=== PATIENT | male | born 1935 | race Caucasian/White ===

== ENCOUNTER 2020-09-13 13:55 | Inpatient (IN) ==
[2020-09-13] MEDS ORDERED: ONDANSETRON INJ 2 MG/ML 2 ML VIAL IV STA (14:15)
[2020-09-13] MEDS ORDERED: ONDANSETRON 4 MG OD TAB PO PRN (14:34)
[2020-09-13] MEDS ORDERED: METOCLOPRAMIDE HCL INJ 5 MG/ML 2 ML VIAL IV PRN (14:34)
[2020-09-13] MEDS ORDERED: LORazepam 1 MG TAB PO PRN (14:34)
[2020-09-13] MEDS ORDERED: PROMETHAZINE HCL 12.5 MG in SODIUM CHLORIDE 0.9% 50 ML IV PRN (14:34)
[2020-09-13] MEDS ORDERED: LORazepam 1 MG/2 ML VIAL IV PRN (14:34)
[2020-09-13] MEDS: HYDROmorphone INJ 0.5 MG/0.5 ML SYR IV PRN ×5 (14:38→23:36)
[2020-09-13 14:40] LABS: Basophils # (auto) 0.01 K/uL (0-0.2); Basophils % (auto) 0.1 %; Eosinophils # (auto) 0.07 K/uL (0-0.5); Eosinophils % (auto) 0.7 %; Hemoglobin 13.5 g/dL (14.0-18.0); Immature Granulocytes # (auto) 0.04 K/uL (0.00-0.02); Immature Granulocytes % (auto) 0.4 %; Lymphocytes # (auto) 1.66 K/uL (1.2-3.4); Lymphocytes % (auto) 17.1 %; Mean Corpuscular Hemoglobin 34.9 pg (25-34); Mean Corpuscular Hgb Conc 33.8 g/dL (32-36); Mean Corpuscular Volume 103.4 fL (80-100); Mean Platelet Volume 11.4 fL (7.4-10.4); Monocytes # (auto) 1.08 K/uL (0.11-0.59); Monocytes % (auto) 11.1 %; Neutrophils # (auto) 6.85 K/uL (1.4-6.5); Neutrophils % (auto) 70.6 %; Platelet Count 147 K/uL (130-400); RDW Coefficient of Variation 12.9 % (11.5-14.5); RDW Standard Deviation 48.4 fL (36.4-46.3); Red Blood Count 3.87 M/uL (4.7-6.1); White Blood Count 9.71 K/uL (4.8-10.8)
[2020-09-13 14:56] LABS: Albumin Level 4.2 gm/dl (3.4-5.0); BUN Creatinine Ratio 20.1 (10-20); Calcium 9.4 mg/dl (8.5-10.1); Est GFR (African American) 48.1; Est GFR (Non-African American) 41.5; Potassium 4.3 mmol/L (3.5-5.1)
[2020-09-13 14:59] LABS: Albumin Globulin Ratio 1.3 (0.9-2); Bilirubin,Total 0.6 mg/dl (0.2-1); Globulin 3.3 gm/dl (2.5-4.0); Total Protein 7.5 gm/dl (6.4-8.2)
--- NOTE | 2020-09-13 16:46 | Emergency Department Note ---
Impression & Plan Intractable low back pain ED Provider Note INFORMANT: Patient ED PROVIDER(S): Florentin Gardner MD CHIEF COMPLAINT: Low back pain PLAN: Disposition: Admitted Condition: Good Outpatient prescription management: none Referral: None MEDICAL DECISION MAKING: Patient presented because of acute low back pain that is intractable despite using medication at home. He has known back problems and was being evaluated by surgery for intervention. Due to the escalating symptoms he came in the ER today. He was treated with IV Dilaudid and Zofran. Blood work was unremarkable. Imaging was not repeated as it was done as an outpatient. I did contact Allison Gaytan PA-C. She is on-call for Dr. Guerrier. She is aware of the patient and will admit him. Triage Nursing notes reviewed and agree them. Additional history obtained from patient's son Vital Signs: reviewed and remarkable for hypertension Differential diagnosis: Musculoskeletal, disc herniation, fracture, metastatic disease, cord compression, discitis, sciatica, cauda equina, infection, aortic disease, renal colic, gastrointestinal, as well as other pathologies. Diagnostics interpreted by me: Cardiac Monitoring: Cardiac monitoring ordered by me: The patient was placed on continuous cardiac monitoring and observed. It revealed a normal sinus rhythm at 62 beats per minute without ectopy or evidence of dysrhythmia. Imaging studies: Deferred Consultation(s): Orthopedic spine HPI: The patient is a 85 year old male who presents to the Emergency Room with complaints of low back pain. This started weeks ago and is worsening. The patient is being followed by Dr. Guerrier of orthopedic spine surgery. He had an MRI done in the office recently and was found to have pinching of the nerves in the lumbar area. Pain does radiate down the right leg. The patient also notes the following associated symptoms, difficulty walking secondary to the pain. The patient has been using tramadol unsuccessfully for relieving factors. Current pain is rated as 14/10. The patient noted that Dr. Guerrier's nurseryman assistant, Allison Gaytan PA-C was aware of the problem and the patient was instructed to come to the emergency department if the pain persisted. Since he could not get control the pain and function at home his son brought him to the ER. Pt denies LOC, headache, fevers, chills, diaphoresis, visual changes, neck pain, chest pain, breathing difficulties, nausea, vomiting, abdominal pain, Covid exposure, melena, hematochezia, urinary symptoms, numbness, weakness, lymphadenopathy, rash, or other complaints. ROS: See above HPI for pertinent positives & negatives. A total of 10 systems reviewed and were otherwise negative. PAST MEDICAL HISTORY:See Below , hypertension, low back pain PAST SURGICAL HISTORY:See Below, lumbar fusion FAMILY HISTORY:See Below SOCIAL HISTORY:See Below, non-smoker HOME MEDICATIONS:See Below ALLERGIES:See Below VITALS:See Below PHYSICAL EXAMINATION: GENERAL: Awake, alert, very uncomfortable-appearing, in moderate distress HENT: Normocephalic, atraumatic. Oropharynx unremarkable. EYES: Normal conjunctiva. Sclera non-icteric. NECK: Inspection normal. Non-tender. Supple. No nuchal rigidity. FROM. No masses. RESPIRATORY: Clear to auscultation. No wheezes. No rales. Normal respiratory effort. CARDIAC: Normal rate. Normal rhythm. No murmurs. No rubs. Extremities warm and well perfused. Pulses equal. No JVD. GI: Soft, non-distended. No tenderness to palpation. No rebound or guarding. No masses. RECTAL: Deferred. MUSCULOSKELETAL: Atraumatic. Chest examination reveals no tenderness. The back is symmetrical on inspection without obvious abnormality. There is right lower lumbar paraspinal muscle tenderness to palpation. There is no CVA tenderness to palpation. No joint edema. LOWER EXTREMITIES: Calves are equal size bilaterally and non-tender. 2+ edema. No discoloration. NEURO: Normal sensorium. No sensory or motor deficits noted. SKIN: No rash or jaundice noted. Florentin Gardner MD Past Med/Surg History Social History Smoking Status: Never smoker Feels Safe at Home: Yes Allergies Allergies Allergy/AdvReac Type Severity Reaction Status Date / Time codeine AdvReac Mild N/V Verified 09/15/15 05:40 Home Meds Home Medications Medication Instructions Recorded Confirmed albuterol sulfate 2.5 mg INHALATION DIRECTED 09/13/20 09/13/20 alfuzosin 10 mg PO DIRECTED 09/13/20 09/13/20 amlodipine 5 mg PO DIRECTED 09/13/20 09/13/20 atorvastatin 40 mg PO DIRECTED 09/13/20 09/13/20 cyanocobalamin (vitamin B-12) 1,000 mcg PO DIRECTED 09/13/20 09/13/20 finasteride 5 mg PO DIRECTED 09/13/20 09/13/20 meloxicam 7.5 mg PO DIRECTED 09/13/20 09/13/20 metoprolol succinate 25 mg PO DIRECTED 09/13/20 09/13/20 omeprazole 20 mg PO DIRECTED 09/13/20 09/13/20 prednisone 5 mg PO DIRECTED 09/13/20 09/13/20 torsemide 10 mg PO DIRECTED 09/13/20 09/13/20 tramadol 50 mg PO DIRECTED PRN 09/13/20 09/13/20 Results & Data (ED) Vital Signs Vital Signs - 24 hr 09/13/20 13:56 09/13/20 14:05 09/13/20 14:06 Temperature 36.6 C Temperature Source Temporal Artery Scan Pulse Rate 50 L 57 L Pulse Rate [Apical] 62 Pulse Rate from SpO2 Sensor 53 L Respiratory Rate 20 16 13 Respiratory Effort / Characteristics Non-Labored Spontaneous Respiratory Depth Normal Blood Pressure 156/102 H Blood Pressure [Right Arm] 156/102 H Blood Pressure Mean 120 Blood Pressure Mean [Right Arm] 120 Pulse Oximetry 96 98 97 Oxygen Delivery Method Room Air Room Air Sepsis Recent Fever Within 48 Hours No Sepsis New/Unexplained Change in Mental Status N/A Sepsis Action Taken by Nursing No Action Required 09/13/20 15:03 09/13/20 15:31 09/13/20 16:02 Temperature Temperature Source Pulse Rate 55 L 56 L 55 L Pulse Rate [Apical] Pulse Rate from SpO2 Sensor 34 L 39 L Respiratory Rate 18 7 L 10 L Respiratory Effort / Characteristics Respiratory Depth Blood Pressure 198/90 H 192/81 H 180/70 H Blood Pressure [Right Arm] Blood Pressure Mean 126 118 106 Blood Pressure Mean [Right Arm] Pulse Oximetry 90 92 90 Oxygen Delivery Method Room Air Sepsis Recent Fever Within 48 Hours Sepsis New/Unexplained Change in Mental Status Sepsis Action Taken by Nursing Laboratory Data Result diagrams: 09/13/20 14:32 09/13/20 14:32 Lab Results 09/13/20 09/13/20 09/13/20 Range/Units 14:32 14:32 14:40 WBC 9.71 (4.8-10.8) K/uL RBC 3.87 L (4.7-6.1) M/uL Hgb 13.5 L (14.0-18.0) g/dL Hct 40.0 L (42-52) % MCV 103.4 H (80-100) fL MCH 34.9 H (25-34) pg MCHC 33.8 (32-36) g/dL RDW Std Deviation 48.4 H (36.4-46.3) fL RDW Coeff of [place] 12.9 (11.5-14.5) % Plt Count 147 (130-400) K/uL MPV 11.4 H (7.4-10.4) fL Immature Gran % (Auto) 0.4 % Neut % (Auto) 70.6 % Lymph % (Auto) 17.1 % [place] % (Auto) 11.1 % Eos % (Auto) 0.7 % Baso % (Auto) 0.1 % Neut # (Auto) 6.85 H (1.4-6.5) K/uL Lymph # (Auto) 1.66 (1.2-3.4) K/uL [place] # (Auto) 1.08 H (0.11-0.59) K/uL Eos # (Auto) 0.07 (0-0.5) K/uL Baso # (Auto) 0.01 (0-0.2) K/uL Immature Gran # (Auto) 0.04 H (0.00-0.02) K/uL Sodium 141 (136-145) mmol/L Potassium 4.3 (3.5-5.1) mmol/L Chloride 104 (98-107) mmol/L Carbon Dioxide 29 (21-32) mmol/L Anion Gap 7.0 (3-11) BUN 30 H (7-18) mg/dl Creatinine 1.51 H (0.6-1.4) mg/dl Est Cr Clr Drug Dosing 39.0 ml/min Est GFR ( Amer) 48.1 Est GFR (Non-Af Amer) 41.5 BUN/Creatinine Ratio 20.1 H (10-20) Glucose 141 H (70-99) mg/dl Calcium 9.4 (8.5-10.1) mg/dl Total Bilirubin 0.6 (0.2-1) mg/dl AST 11 L (15-37) U/L ALT 28 (12-78) U/L Alkaline Phosphatase 83 (45-117) U/L Total Protein 7.5 (6.4-8.2) gm/dl Albumin 4.2 (3.4-5.0) gm/dl Globulin 3.3 (2.5-4.0) gm/dl Albumin/Globulin Ratio 1.3 (0.9-2) COVID-19 Eval [facility] SARS-CoV-2, RNA, NAAT (NEGATIVE) 09/13/20 Range/Units 14:40 WBC (4.8-10.8) K/uL RBC (4.7-6.1) M/uL Hgb (14.0-18.0) g/dL Hct (42-52) % MCV (80-100) fL MCH (25-34) pg MCHC (32-36) g/dL RDW Std Deviation (36.4-46.3) fL RDW Coeff of [place] (11.5-14.5) % Plt Count (130-400) K/uL MPV (7.4-10.4) fL Immature Gran % (Auto) % Neut % (Auto) % Lymph % (Auto) % [place] % (Auto) % Eos % (Auto) % Baso % (Auto) % Neut # (Auto) (1.4-6.5) K/uL Lymph # (Auto) (1.2-3.4) K/uL [place] # (Auto) (0.11-0.59) K/uL Eos # (Auto) (0-0.5) K/uL Baso # (Auto) (0-0.2) K/uL Immature Gran # (Auto) (0.00-0.02) K/uL Sodium (136-145) mmol/L Potassium (3.5-5.1) mmol/L Chloride (98-107) mmol/L Carbon Dioxide (21-32) mmol/L Anion Gap (3-11) BUN (7-18) mg/dl Creatinine (0.6-1.4) mg/dl Est Cr Clr Drug Dosing ml/min Est GFR ( Amer) Est GFR (Non-Af Amer) BUN/Creatinine Ratio (10-20) Glucose (70-99) mg/dl Calcium (8.5-10.1) mg/dl Total Bilirubin (0.2-1) mg/dl AST (15-37) U/L ALT (12-78) U/L Alkaline Phosphatase (45-117) U/L Total Protein (6.4-8.2) gm/dl Albumin (3.4-5.0) gm/dl Globulin (2.5-4.0) gm/dl Albumin/Globulin Ratio (0.9-2) COVID-19 Eval Order SARS-CoV-2, RNA, NAAT NEGATIVE (NEGATIVE) Administered Medications Hydromorphone HCl (Hydromorphone Inj 0.5 Mg/0.5 Ml Syr) 0.5 mg IV Q15M PRN PRN Reason: Pain Stop: 09/27/20 14:14 Last Admin: 09/13/20 15:18 Dose: 0.5 mg Documented by: [id number] Admin: 09/13/20 14:38 Dose: 0.5 mg Documented by: [id number] Discontinued Medications Ondansetron HCl (Ondansetron Inj 2 Mg/Ml 2 Ml Vial) 4 mg IV NOW STA Stop: 09/13/20 14:16 Last Admin: 09/13/20 14:38 Dose: 4 mg Documented by: [id number] Discharge Plan Visit Data Chief Complaint: Back Injury/Pain Stated Complaint: BACK PAIN ED Provider: Florentin Gardner Discharge Problem: Intractable low back pain Forms Stand Alone Forms: My [facility] Prescriptions Prescriptions: No Action atorvastatin 40 mg tablet 40 mg PO DIRECTED RF: 0 prednisone 5 mg tablet 5 mg PO DIRECTED RF: 0 torsemide 10 mg tablet 10 mg PO DIRECTED RF: 0 amlodipine 5 mg tablet 5 mg PO DIRECTED RF: 0 tramadol 50 mg tablet 50 mg PO DIRECTED PRN (Reason: Pain) RF: 0 meloxicam 7.5 mg tablet 7.5 mg PO DIRECTED RF: 0 omeprazole 20 mg capsule,delayed release(DR/EC) 20 mg PO DIRECTED RF: 0 cyanocobalamin (vitamin B-12) 1,000 mcg tablet, sublingual 1,000 mcg PO DIRECTED RF: 0 metoprolol succinate 25 mg tablet extended release 24 hr 25 mg PO DIRECTED RF: 0 finasteride 5 mg tablet 5 mg PO DIRECTED RF: 0 alfuzosin 10 mg tablet extended release 24 hr 10 mg PO DIRECTED RF: 0 albuterol sulfate 2.5 mg /3 mL (0.083 %) solution for nebulization 2.5 mg inhalation DIRECTED RF: 0 Referrals Referrals: Florentin Corrales PA-C [Primary Care Provider] -
--- NOTE | 2020-09-13 17:49 | Internal Medicine Consult Note ---
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 Labs Checked ROS-No Headache, No Visual Changes, No Nausea, No Vomiting, No Fever, No Chills, No Neck Pain or Stiffness, No Chest Pain, No Palpitations, No SOB, No BARRERA, No Cough, No Sputum, No Wheezing, No Abdominal Pain, No Diarrhea, No Hematemesis, No Hemoptysis, No Unexpected Weight Loss, No Flank pain, No Melena, No Hematochezia, No Frequency, No Urgency, No Burning, No Hematuria, No Rashes, No Diaphoresis. Appetite is Normal, +LBP c Pain down R>LLE Physical Exam Gen-AAO x 3, NAD, Afebrile Head-NCAT, EOMI, PERRLA, Anicteric Sclera, No Posterior Pharyngeal Erythema Neck-Supple, No JVD, No Thyromegaly, No Masses, No LAD, No Bruits Lungs-Clear to Auscultation Bilaterally, No Rales, No Rhonchi, No Wheezing, No Crepitus Chest-No S4, +S1, +S2, No S3, No Murmurs, No Rubs, No Gallops, No Ectopy Abdomen-Soft, Bowel Sounds Present, Non Tender, Non Distended, No Hepatomegaly, No Splenomegaly, No Palpable Masses, No Rebound, No Rigidity, No Guarding Musculoskeletal-Full Range of Motion Bilaterally, No CVAT Extremities-No Cyanosis, No Clubbing, No Edema Nuero-Cranial Nerves II-XII grossly intact, Motor WNL, DTRs WNL, Strength WNL, Non Focal Psych-Normal Mood History of Present Illness Reason for Consultation: Medical Management Requesting Physician: Dr Guerrier Attending Physician: Francisco Guerrier, DO History of Present Illness 85 yo male c PMH of Low Back pain c radicular symptoms, HTN, CAD, HLD, CKD III, GERD, Spinal Stenosis in Neck and L Spine presents to ER c intractable low back pain. He went to Dr Guerrier's office on and was told if it worsens to call. Today he called Dr Guerrier and said the pain was worsening and traveling down his R<LLE. It hurts to even move a little. 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, Dysphagia PSH-Back, Ear and Nose lesion, Nasal and Tracheal Polyps, Neck surgery FH-M of CAD, F of Mult problems, Sever OA, 5 Brothers and 3 Sisters all , Diabetes, CAD etc, 2 Sons alive one c Meniere's and another c Bladder Ca Soc-, Retired Insurance Sales, No tob/Drugs, Occas ETOH Allergies Allergy/AdvReac Type Severity Reaction Status Date / Time codeine AdvReac Mild N/V Verified 09/15/15 05:40 Home Medications Medication Instructions Recorded Confirmed Type albuterol sulfate 2.5 mg INHALATION DIRECTED 09/13/20 09/13/20 History alfuzosin 10 mg PO DIRECTED 09/13/20 09/13/20 History amlodipine 5 mg PO DIRECTED 09/13/20 09/13/20 History atorvastatin 40 mg PO DIRECTED 09/13/20 09/13/20 History cyanocobalamin (vitamin B-12) 1,000 mcg PO DIRECTED 09/13/20 09/13/20 History finasteride 5 mg PO DIRECTED 09/13/20 09/13/20 History meloxicam 7.5 mg PO DIRECTED 09/13/20 09/13/20 History metoprolol succinate 25 mg PO DIRECTED 09/13/20 09/13/20 History omeprazole 20 mg PO DIRECTED 09/13/20 09/13/20 History prednisone 5 mg PO DIRECTED 09/13/20 09/13/20 History torsemide 10 mg PO DIRECTED 09/13/20 09/13/20 History tramadol 50 mg PO DIRECTED PRN 09/13/20 09/13/20 History Patient History Social History Smoking Status: Never smoker Feels Safe at Home: Yes Results & Data ([facility]) Vital Signs (Past 12 Hours) Vital Signs Temp Pulse Pulse Resp BP BP Pulse Ox 09/13/20 16:42 58 L 16 185/85 H 92 09/13/20 16:31 58 L 16 185/85 H 09/13/20 16:02 55 L 10 L 180/70 H 90 09/13/20 15:31 56 L 7 L 192/81 H 92 09/13/20 15:03 55 L 18 198/90 H 90 09/13/20 14:06 62 13 156/102 H 97 09/13/20 14:05 57 L 16 156/102 H 98 09/13/20 13:56 36.6 C 50 L 20 96 Allergies codeine Adverse Reaction (Mild, Verified 09/15/15 05:40) N/V Height/Weight/Isolation Height 5 ft 7 in Weight 93.8 kg Chemistry 09/13/20 14:32 Sodium 141 Potassium 4.3 Chloride 104 Carbon Dioxide 29 Anion Gap 7.0 BUN 30 H Creatinine 1.51 H Glucose 141 H
[2020-09-13] MEDS ORDERED: ALBUTEROL 0.083% NEBU SOLN 3 ML VIAL INH PRN (18:00)
--- NOTE | 2020-09-13 19:02 | XRay Report ---
XR chest 1V portable HISTORY: preop COMPARISON: Chest 09/11/2020. FINDINGS: The heart is enlarged. There is mild central pulmonary vascular congestion without overt ed art. No new focal lung consolidations to suggest pneumonia. No pleural effusions. No pneumothorax. Pa rtially visualized cervical spinal fusion hardware is noted. IMPRESSION: Cardiomegaly. There is mild central pulmonary vascular congestion without overt edema. ACT 112: Negative or not required by law. Electronically signed by: Hilario Lyon M.D. 09/13/2020 7:01 PM
[2020-09-13] MEDS: LACTATED RINGER'S 1,000 ML IV SCH (19:12)
[2020-09-13] MEDS: DOCUSATE SODIUM 100 MG CAP PO SCH (20:23)
[2020-09-13] MEDS: PANTOprazole 40 MG TAB PO SCH (20:23)
[2020-09-13] MEDS: traMADol HCL 50 MG TABLET PO PRN (20:38)
[2020-09-14] MEDS: HYDROmorphone INJ 0.5 MG/0.5 ML SYR IV PRN ×7 (02:13→17:08)
[2020-09-14] MEDS ORDERED: ceFAZolin 2000MG 2,000 MG/15 ML SYR IV SCH (06:00)
[2020-09-14 06:43] LABS: Hematocrit (blood only) 35.7 % (42-52); Mean Corpuscular Hemoglobin 34.9 pg (25-34); Mean Corpuscular Hgb Conc 33.6 g/dL (32-36); Mean Corpuscular Volume 103.8 fL (80-100); Mean Platelet Volume 11.1 fL (7.4-10.4); Platelet Count 151 K/uL (130-400); RDW Standard Deviation 48.9 fL (36.4-46.3); Red Blood Count 3.44 M/uL (4.7-6.1); White Blood Count 10.39 K/uL (4.8-10.8)
[2020-09-14 06:51] LABS: INR 1.1 (0.9-1.1); Prothrombin Time 11.2 Seconds (9.0-12.0)
[2020-09-14 07:17] LABS: Albumin Level 3.5 gm/dl (3.4-5.0); BUN Creatinine Ratio 16.5 (10-20); Calcium 8.8 mg/dl (8.5-10.1); Creatinine Clr Calc Pharmacy 37.6 ml/min; Est GFR (African American) 46.3; Est GFR (Non-African American) 39.9; Magnesium 1.6 mg/dl (1.8-2.4); Potassium 4.1 mmol/L (3.5-5.1)
[2020-09-14 07:19] LABS: Albumin Globulin Ratio 1.3 (0.9-2); Bilirubin,Total 0.5 mg/dl (0.2-1); Globulin 2.8 gm/dl (2.5-4.0); Phosphorus 3.7 mg/dl (2.5-4.9); Total Protein 6.3 gm/dl (6.4-8.2)
[2020-09-14] MEDS ORDERED: NORTRIPTYLINE HCL 25 MG CAP PO PRN (09:17)
--- NOTE | 2020-09-14 09:21 | Hospitalist Progress Note ---
Date of Service September 14, 2020 Assessment & Plan (1) Intractable low back pain: (2) HTN (hypertension): (3) CAD (coronary artery disease): (4) HLD (hyperlipidemia): (5) GERD (gastroesophageal reflux disease): (6) CKD (chronic kidney disease), stage III: (7) Spinal stenosis: (8) History of lumbar laminectomy for spinal cord decompression: (9) H/O neck surgery: (10) Lumbar stenosis with neurogenic claudication: Will follow along with Dr Guerrier, SB c 1st degree AVB, Cards eval, NPO p MN tonight, may eat today, OR Tuesday, Pain control, add Pamelor, continue Metoprolol even if NPO, Amlodipine, Hold Torsemide, monitor daily labs. Labs Checked ROS-No Headache, No Visual Changes, No Nausea, No Vomiting, No Fever, No Chills, No Neck Pain or Stiffness, No Chest Pain, No Palpitations, No SOB, No BARRERA, No Cough, No Sputum, No Wheezing, No Abdominal Pain, No Diarrhea, No Hematemesis, No Hemoptysis, No Unexpected Weight Loss, No Flank pain, No Melena, No Hematochezia, No Frequency, No Urgency, No Burning, No Hematuria, No Rashes, No Diaphoresis. Appetite is Normal, +LBP c Pain down R>LLE Physical Exam Gen-AAO x 3, Mod to Severe Back Pain, Afebrile Head-NCAT, EOMI, PERRLA, Anicteric Sclera, No Posterior Pharyngeal Erythema Neck-Supple, No JVD, No Thyromegaly, No Masses, No LAD, No Bruits Lungs-Clear to Auscultation Bilaterally, No Rales, No Rhonchi, No Wheezing, No Crepitus Chest-No S4, +S1, +S2, No S3, No Murmurs, No Rubs, No Gallops, No Ectopy Abdomen-Soft, Bowel Sounds Present, Non Tender, Non Distended, No Hepatomegaly, No Splenomegaly, No Palpable Masses, No Rebound, No Rigidity, No Guarding Musculoskeletal-Full Range of Motion Bilaterally, No CVAT Extremities-No Cyanosis, No Clubbing, No Edema Nuero-Cranial Nerves II-XII grossly intact, Motor WNL, DTRs WNL, Strength WNL, Non Focal Psych-Normal Mood Admission and Anticipated Discharge Date Admission Date: September 13, 2020 Results & Data Results & Data ([facility]) Vital Signs (Past 12 Hours) Vital Signs Temp Pulse Resp BP Pulse Ox 09/14/20 07:19 36.6 C 57 L 16 174/65 H 90 09/13/20 23:35 36.7 C 65 22 194/80 H 93
[2020-09-14] MEDS: DOCUSATE SODIUM 100 MG CAP PO SCH ×2 (09:59→21:04)
[2020-09-14] MEDS: PANTOprazole 40 MG TAB PO SCH ×2 (09:59→21:04)
[2020-09-14] MEDS: ALFUZOSIN HCL 10 MG TAB PO SCH (09:59)
[2020-09-14] MEDS: amLODIPine BESYLATE 5 MG TAB PO SCH (09:59)
[2020-09-14] MEDS: FINASTERIDE 5 MG TAB PO SCH (10:00)
[2020-09-14] MEDS: ATORVASTATIN 40 MG TAB PO SCH (10:00)
[2020-09-14] MEDS: METOPROLOL SUCC 25MG EXT REL TAB PO SCH (10:00)
[2020-09-14] MEDS: CYANOCOBALAMIN 500 MCG TABLET (VITAMIN B-12) PO SCH (10:00)
[2020-09-14] MEDS: HYDROmorphone HCL 2 MG TAB PO PRN ×2 (10:21→23:35)
--- NOTE | 2020-09-14 10:24 | Cardiology Consultation ---
Date of Consultation September 14, 2020 Assessment & Plan (1) Preop cardiovascular exam: Patient is an 85-year-old male referred for preoperative assessment prior to planned back surgery for relief of intractable pain with neurogenic claudication and neuropathic complaints. Surgery medically indicated due to complaints Patient has underlying chronic stable ischemic heart disease and valvular heart disease as outlined above including moderate to borderline severe aortic stenosis EKGs are unchanged from outpatient studies with chronic right bundle branch block and frequent ventricular ectopy well-known. Plan: Echocardiogram today to establish severity of aortic stenosis. Patient has indicated necessity for surgery and is fully aware of potential risks. Patient elevated risk for complication from surgery given underlying morbidities including coronary artery disease, valvular disease, age and chronic corticosteroid use Recommendations: Continue metoprolol perioperatively Would recommend telemetry or ICU post procedure Consider stress dose corticosteroids given chronic prednisone use (2) Nonrheumatic aortic (valve) stenosis: (3) HTN (hypertension): (4) CAD (coronary artery disease): (5) Lumbar stenosis with neurogenic claudication: History of Present Illness Reason for Consultation: Preoperative cardiovascular evaluation Requesting Physician: Dr. Bloom Attending Physician: Francisco Guerrier, History of Present Illness Patient is an 85-year-old male with complex underlying and ongoing cardiac issues which include 1. Moderate to severe aortic stenosis 2. HTN - uncontrolled secondary to low back pain 3. Chronic CAD -Moderate disease not hemodynamically significant per FFR 2009 -recent Lexiscan nuclear stress test negative for inducible ischemia 12/2019 4. Dyslipidemia goal LDL less than 70mg/dL - tolerating 40mg atorvastatin 5. PSVT - asymptomatic 6. CKD - 3 : Stable 7. RBBB 8. Chronic ventricular ectopy, bigeminy 9. Osteoarthritis on chronic prednisone 10. Spinal stenosis with neurogenic claudication and intractable back pain now with neuropathic symptoms and bladder retention Patient is referred for preoperative assessment prior to urgent spinal surgery due to intractable pain and neuropathic complaints. Patient's underlying cardiac history is notable for stable chronic ischemic heart disease without angina, chest pain or shortness of breath. Activities recently been curtailed due to back pain though stress testing in December 2019 - for ischemia. Patient also has an underlying history of moderate to borderline severe aortic stenosis but without congestive heart failure. EKGs have demonstrated chronic right bundle branch block and chronic ventricular ectopy/bigeminy. He denies dizziness lightness syncope or near syncope. Main complaints have been progressively worsening back pain now debilitating in nature. No fevers chills or unexplained infections. No bleeding difficulties. No cough or shortness of breath. He has had some dependent edema but back pain is the point of the patient sleeping upright in a chair for relief Currently no edema on exam. Patient denies any bleeding issues. No easy bruising on chronic prednisone therapy. No anesthesia complications with prior multiple surgeries Allergies Allergy/AdvReac Type Severity Reaction Status Date / Time codeine AdvReac Mild N/V Verified 09/15/15 05:40 Home Medications Medication Instructions Recorded Confirmed Type albuterol sulfate 2.5 mg INHALATION DIRECTED 09/13/20 09/13/20 History alfuzosin 10 mg PO DIRECTED 09/13/20 09/13/20 History amlodipine 5 mg PO DIRECTED 09/13/20 09/13/20 History atorvastatin 40 mg PO DIRECTED 09/13/20 09/13/20 History cyanocobalamin (vitamin B-12) 1,000 mcg PO DIRECTED 09/13/20 09/13/20 History finasteride 5 mg PO DIRECTED 09/13/20 09/13/20 History meloxicam 7.5 mg PO DIRECTED 09/13/20 09/13/20 History metoprolol succinate 25 mg PO DIRECTED 09/13/20 09/13/20 History omeprazole 20 mg PO DIRECTED 09/13/20 09/13/20 History prednisone 5 mg PO DIRECTED 09/13/20 09/13/20 History torsemide 10 mg PO DIRECTED 09/13/20 09/13/20 History tramadol 50 mg PO DIRECTED PRN 09/13/20 09/13/20 History Patient History Social History Smoking Status: Former smoker Hx Alcohol Use: Yes Alcohol type: beer Hx Substance Use: No Preferred Language: Malaysian Communication Ability: Effective Pharmaceutical Sales Required: No Beliefs That Will Affect Care: None Current Living Situation: Spouse Other Information That Helps Us Care for You: No Feels Safe at Home: Yes Safety Concerns: Feels Safe At This Time Assistive Devices: Glasses and Hearing Aid - Bilateral Review of Systems Review of Systems: All systems reviewed & are unremarkable except as noted in HPI & below Physical Exam Constitutional: WD/WN, vitals as above + cushingoid (Mild) Eyes: PERRL, conjunctivae normal, anicteric sclerae ENMT: external ear and nose normal, oropharynx normal Neck: trachea midline, no thyromegaly + thick neck Referred murmur to the base of the carotids Respiratory: normal respiratory effort, lungs clear to auscultation Cardiovascular: Rate/Rhythm: regular rate and regular rhythm Heart Sounds: normal S1 and + murmur (Harsh grade 3/6 systolic murmur, no diastolic murmur); + abnormal S2 (S2 is diminished) and no gallop Palpation: normal PMI Vessels: normal carotid upstroke and radial pulses present; no JVD and no caroti d bruit Extremities: no edema Gastrointestinal (Abdomen): normal bowel sounds, soft, nontender, no hepatosplenomegaly Musculoskeletal: no cyanosis or clubbing, extremities motor strength 5/5 Skin: no rashes, warm and dry Doughy changes of the skin with fragile skin and turgor with ecchymosis consistent with chronic corticosteroid use Neurologic: PERRL, EOMI, accommodation nl, no face palsy, no dysarthria Psychiatric: A+Ox3, euthymic affect Results & Data ([facility]) Vital Signs (Past 12 Hours) Vital Signs Temp Pulse Resp BP Pulse Ox 09/14/20 07:19 36.6 C 57 L 16 174/65 H 90 09/13/20 23:35 36.7 C 65 22 194/80 H 93 Laboratory Results Laboratory Results - last 24 hr 09/13/20 09/13/20 09/13/20 14:32 14:32 14:40 WBC 9.71 RBC 3.87 L Hgb 13.5 L Hct 40.0 L MCV 103.4 H MCH 34.9 H MCHC 33.8 RDW Std Deviation 48.4 H RDW Coeff of Suma 12.9 Plt Count 147 MPV 11.4 H Immature Gran % (Auto) 0.4 Neut % (Auto) 70.6 Lymph % (Auto) 17.1 Perkins % (Auto) 11.1 Eos % (Auto) 0.7 Baso % (Auto) 0.1 Neut # (Auto) 6.85 H Lymph # (Auto) 1.66 Perkins # (Auto) 1.08 H Eos # (Auto) 0.07 Baso # (Auto) 0.01 Immature Gran # (Auto) 0.04 H PT INR Sodium 141 Potassium 4.3 Chloride 104 Carbon Dioxide 29 Anion Gap 7.0 BUN 30 H Creatinine 1.51 H Est Cr Clr Drug Dosing 39.0 Est GFR ( Amer) 48.1 Est GFR (Non-Af Amer) 41.5 BUN/Creatinine Ratio 20.1 H Glucose 141 H Calcium 9.4 Phosphorus Magnesium Total Bilirubin 0.6 AST 11 L ALT 28 Alkaline Phosphatase 83 Total Protein 7.5 Albumin 4.2 Globulin 3.3 Albumin/Globulin Ratio 1.3 COVID-19 Eval [facility] SARS-CoV-2, RNA, NAAT 09/13/20 09/14/20 09/14/20 14:40 06:30 06:30 WBC 10.39 RBC 3.44 L Hgb 12.0 L Hct 35.7 L MCV 103.8 H MCH 34.9 H MCHC 33.6 RDW Std Deviation 48.9 H RDW Coeff of Suma 13.0 Plt Count 151 MPV 11.1 H Immature Gran % (Auto) Neut % (Auto) Lymph % (Auto) Perkins % (Auto) Eos % (Auto) Baso % (Auto) Neut # (Auto) Lymph # (Auto) Perkins # (Auto) Eos # (Auto) Baso # (Auto) Immature Gran # (Auto) PT 11.2 INR 1.1 Sodium Potassium Chloride Carbon Dioxide Anion Gap BUN Creatinine Est Cr Clr Drug Dosing Est GFR ( Amer) Est GFR (Non-Af Amer) BUN/Creatinine Ratio Glucose Calcium Phosphorus Magnesium Total Bilirubin AST ALT Alkaline Phosphatase Total Protein Albumin Globulin Albumin/Globulin Ratio COVID-19 Eval Order SARS-CoV-2, RNA, NAAT NEGATIVE 09/14/20 06:30 WBC RBC Hgb Hct MCV MCH MCHC RDW Std Deviation RDW Coeff of Suma Plt Count MPV Immature Gran % (Auto) Neut % (Auto) Lymph % (Auto) Perkins % (Auto) Eos % (Auto) Baso % (Auto) Neut # (Auto) Lymph # (Auto) Perkins # (Auto) Eos # (Auto) Baso # (Auto) Immature Gran # (Auto) PT INR Sodium 143 Potassium 4.1 Chloride 105 Carbon Dioxide 32 Anion Gap 6.0 BUN 26 H Creatinine 1.56 H Est Cr Clr Drug Dosing 37.6 Est GFR ( Amer) 46.3 Est GFR (Non-Af Amer) 39.9 BUN/Creatinine Ratio 16.5 Glucose 110 H Calcium 8.8 Phosphorus 3.7 Magnesium 1.6 L Total Bilirubin 0.5 AST 10 L ALT 24 Alkaline Phosphatase 68 Total Protein 6.3 L Albumin 3.5 Globulin 2.8 Albumin/Globulin Ratio 1.3 COVID-19 Eval Order SARS-CoV-2, RNA, NAAT Diagnostic Findings 2D echocardiogram report 05/2020: Sinus rhythm with frequent ectopy was observed during the echocardiogram. The LV wall thickness is mildly increased (concentric). The left ventricular wall motion is normal. The qualitative LV ejection fraction is 60-64% (normal). The aortic valve has three leaflets. The aortic valve is moderately calcified. Moderate to severe aortic valve stenosis is present. Doppler assessment consistent with moderate aortic valve stenosis with peak CW velocity of 3.2 meters/second, mean gradient 22 millimeters Hg, calculated DANIEL= 0.9 dash 1.1 centimeter squared. Per 2D appearance however the aortic valve stenosis appears more severe with an aortic valve area measured to be 0.75 centimeter squared by planimetry. There is no significant aortic regurgitation. Mild tricuspid regurgitation is present. Mild pulmonary hypertension is present. The estimated pulmonary artery systolic pressure is 39mm Hg. The aortic root is normal sized. The proximal ascending thoracic aorta is borderline enlarged with diameter 3.8 cm. Compared to the prior study dated 10/19/2019, the Doppler indices of aortic valve stenosis are stable without significant interval Change. Lexiscan nuclear stress test report 12/2019: Lexiscan nuclear cardiac stress test negative for ischemia. Gated SPECT images reveals normal myocardial thickening and wall motion. The LV ejection fraction is calculated at 64%. Cardiac catheterization findings 06/2010: 1. On limited views, distal left main appears to have 40% disease. The ostial circumflex appears to have 60% lesion. 2. Functional flow reserve of distal left main and circumflex showed a value of 0.86, 0.96, and 0.93 on 3 different runs, indicating that the lesions were not functionally significant. Medical management was advised ECG Additional Comments: EKG 09/13/2020: Sinus rhythm with frequent ventricular ectopy/bigeminy, right bundle branch block Unchanged from prior outpatient study of 10/09/2019
--- NOTE | 2020-09-14 10:57 | History & Physical Report ---
Date of Service September 14, 2020 Assessment & Plan (1) Lumbar stenosis with neurogenic claudication: Admission and Anticipated Discharge Date Admission Date: September 13, 2020 At this time the patient's noting significant decline in neurologic status with known advanced spinal stenosis at the thoracolumbar junction. Subsequently I am recommending urgent decompression fusion. We would have to decompress and fuse T12-L1 L1-L2. Risk benefits pros cons and alternatives were outlined in detail with the patient. He is being worked up from a medical standpoint will make him n.p.o. after midnight and hopefully perform surgery tomorrow. History of Present Illness Chief Complaint: Back and leg pain Primary Care Provider: Florentin Corrales PA-C This is an 85-year-old male well-known to me that is been struggling over the past several months. I been working him up in my office and recently obtained an MRI lumbar spine. It demonstrates severe advanced spinal stenosis T12-L1 L1- L2. He has continued decline with severe pain and was taken to emergency room by his family. He describes pain across the thoracolumbar lumbar junction radiating mostly into the right leg. It does extend to the foot. Any coughing sneezing or motion reproduces his symptoms. He is essentially wheelchair-bound. Allergies Allergy/AdvReac Type Severity Reaction Status Date / Time codeine AdvReac Mild N/V Verified 09/15/15 05:40 Home Medications Medication Instructions Recorded Confirmed Type albuterol sulfate 2.5 mg INHALATION DIRECTED 09/13/20 09/13/20 History alfuzosin 10 mg PO DIRECTED 09/13/20 09/13/20 History amlodipine 5 mg PO DIRECTED 09/13/20 09/13/20 History atorvastatin 40 mg PO DIRECTED 09/13/20 09/13/20 History cyanocobalamin (vitamin B-12) 1,000 mcg PO DIRECTED 09/13/20 09/13/20 History finasteride 5 mg PO DIRECTED 09/13/20 09/13/20 History meloxicam 7.5 mg PO DIRECTED 09/13/20 09/13/20 History metoprolol succinate 25 mg PO DIRECTED 09/13/20 09/13/20 History omeprazole 20 mg PO DIRECTED 09/13/20 09/13/20 History prednisone 5 mg PO DIRECTED 09/13/20 09/13/20 History torsemide 10 mg PO DIRECTED 09/13/20 09/13/20 History tramadol 50 mg PO DIRECTED PRN 09/13/20 09/13/20 History Past Med/Surg History Social History Smoking Status: Former smoker Hx Alcohol Use: Yes Alcohol type: beer Hx Substance Use: No Preferred Language: Egyptian Communication Ability: Effective Charter Coordinator Required: No Beliefs That Will Affect Care: None Current Living Situation: Spouse Other Information That Helps Us Care for You: No Feels Safe at Home: Yes Safety Concerns: Feels Safe At This Time Assistive Devices: Glasses and Hearing Aid - Bilateral Physical Exam Physical Exam: On exam he is in obvious distress. He has difficulty sitting up or getting out of a chair. He exhibits deficits to quadriceps on the right as well as deficits to plantar flexion dorsiflexion of 4/5 compared to 5 5 on the left. He is unable to stand without significant assistance. He is in severe obvious distress. Results & Data ([facility]) Vital Signs (Past 12 Hours) Vital Signs Temp Pulse Resp BP Pulse Ox 09/14/20 07:19 36.6 C 57 L 16 174/65 H 90 09/13/20 23:35 36.7 C 65 22 194/80 H 93 Code Status & VTE Plan VTE Prophylaxis Plan VTE Prophylaxis will be ordered: Yes
[2020-09-14] MEDS ORDERED: dexAMETHasone 8 MG in SYRINGE 0 ML IV ONE (11:15)
--- NOTE | 2020-09-14 11:37 | Electrocardiogram Report ---
Test Reason : Blood Pressure : / mmHG Vent. Rate : 062 BPM Atrial Rate : 062 BPM P-R Int : 176 ms QRS Dur : 114 ms QT Int : 456 ms P-R-T Axes : 061 028 -05 degrees QTc Int : 462 ms Poor data quality, interpretation may be adversely affected Sinus rhythm with frequent Premature ventricular complexes Low voltage QRS Right bundle branch block Septal infarct , age undetermined Abnormal ECG When compared with ECG of 11-SEP-2020 14:34, No significant change Confirmed by Santiago Gonzalez ([id number]) on 09/14/2020 11:36:45 AM Referred By: REFERRED SELF Confirmed By:Santiago Gonzalez
[2020-09-14] MEDS: HYDROCORTISONE SOD 50 MG in SYRINGE 0 ML IV SCH ×2 (13:54→21:04)
[2020-09-14] MEDS: ONDANSETRON INJ 2 MG/ML 2 ML VIAL IV PRN (14:31)
[2020-09-14] MEDS: LACTATED RINGER'S 1,000 ML IV SCH (14:34)
--- NOTE | 2020-09-14 15:10 | Anesthesiology Consultation ---
Date of Service September 14, 2020 Assessment & Plan Chart Review Chart Review: Acceptable Risk for Surgery and Patient NOT seen in Pre Admission Testing Consults Requested medical & cardiac ASA ASA4 Proposed Anesthesia Anesthesia Type: General Anesthesia Line Insertion: Arterial line History Height/Weight Height: 5 ft 7 in Weight: 92.986 kg Allergies Allergy/AdvReac Type Severity Reaction Status Date / Time codeine AdvReac Mild N/V Verified 09/15/15 05:40 Medications Home Medications Medication Instructions Recorded Confirmed Last Taken albuterol sulfate 2.5 mg INHALATION DIRECTED 09/13/20 09/13/20 Unknown alfuzosin 10 mg PO DIRECTED 09/13/20 09/13/20 Unknown amlodipine 5 mg PO DIRECTED 09/13/20 09/13/20 Unknown atorvastatin 40 mg PO DIRECTED 09/13/20 09/13/20 Unknown cyanocobalamin (vitamin B-12) 1,000 mcg PO DIRECTED 09/13/20 09/13/20 Unknown finasteride 5 mg PO DIRECTED 09/13/20 09/13/20 Unknown meloxicam 7.5 mg PO DIRECTED 09/13/20 09/13/20 Unknown metoprolol succinate 25 mg PO DIRECTED 09/13/20 09/13/20 Unknown omeprazole 20 mg PO DIRECTED 09/13/20 09/13/20 Unknown prednisone 5 mg PO DIRECTED 09/13/20 09/13/20 Unknown torsemide 10 mg PO DIRECTED 09/13/20 09/13/20 Unknown tramadol 50 mg PO DIRECTED PRN 09/13/20 09/13/20 Unknown Active Medications Generic Name Dose Route Start Last Admin Trade Name Sylvain PRN Reason Stop Dose Admin Alfuzosin HCl 10 mg 09/14/20 09:00 09/14/20 09:59 Alfuzosin Hcl 10 Mg Tab PO 10/14/20 08:59 10 mg DAILY HUSSAIN Administration Amlodipine Besylate 5 mg 09/14/20 09:00 09/14/20 09:59 Amlodipine Besylate 5 Mg Tab PO 10/14/20 08:59 5 mg DAILY HUSSAIN Administration Atorvastatin Calcium 40 mg 09/14/20 09:00 09/14/20 10:00 Atorvastatin 40 Mg Tab PO 10/14/20 08:59 40 mg DAILY HUSSAIN Administration Cyanocobalamin 1,000 mcg 09/14/20 09:00 09/14/20 10:00 Cyanocobalamin 500 Mcg Tablet (Vitamin B-12) PO 10/14/20 08:59 1,000 mcg DAILY HUSSAIN Administration Docusate Sodium 100 mg 09/13/20 21:00 09/14/20 09:59 Docusate Sodium 100 Mg Cap PO 10/13/20 20:59 100 mg BID HUSSAIN Administration Finasteride 5 mg 09/14/20 09:00 09/14/20 10:00 Finasteride 5 Mg Tab PO 10/14/20 08:59 5 mg DAILY HUSSAIN Administration Hydromorphone HCl 0.5 mg 09/13/20 14:15 09/14/20 12:13 Hydromorphone Inj 0.5 Mg/0.5 Ml Syr IV 09/27/20 14:14 0.5 mg Q15M PRN Administration Pain Hydromorphone HCl 2 mg 09/13/20 14:34 09/14/20 10:21 Hydromorphone Hcl 2 Mg Tab PO 09/27/20 14:33 2 mg Q4H PRN Administration Pain & Pre PT Lactated Ringer's 1,000 mls @ 15 mls/hr 09/13/20 14:45 09/14/20 14:34 Lr IV 10/13/20 14:44 15 mls/hr .Q24H HUSSAIN Administration Hydrocortisone Sodium 1 mls @ 4 mls/min 09/14/20 14:00 09/14/20 13:54 Succinate 50 mg/ Syringe IV 10/14/20 13:59 4 mls/min Q8H HUSSAIN Administration Metoprolol Succinate 25 mg 09/14/20 09:00 09/14/20 10:00 Metoprolol Succ 25mg Ext Rel Tab PO 10/14/20 08:59 25 mg DAILY HUSSAIN Administration Ondansetron HCl 4 mg 09/13/20 14:34 09/14/20 14:31 Ondansetron Inj 2 Mg/Ml 2 Ml Vial IV 10/13/20 14:33 4 mg Q6H PRN Administration Nausea &/or Vomiting Pantoprazole Sodium 40 mg 09/13/20 21:00 09/14/20 09:59 Pantoprazole 40 Mg Tab PO 10/13/20 20:59 40 mg BID HUSSAIN Administration Tramadol HCl 50 mg 09/13/20 14:34 09/13/20 20:38 Tramadol Hcl 50 Mg Tablet PO 10/13/20 14:33 50 mg Q4H PRN Administration MODERATE Pain (4,5,6) & Pre PT Exercise / Class Metabolic Activity IV < 2 Limit ADL/Bedbound Past Anesthesia History No Hx of Anesthesia Complications and No Family Hx of Anesthesia Complications History of PONV No Hx of PONV and No Hx of Motion Sickness Social History Smoking Status: Former smoker Hx Alcohol Use: Yes Alcohol type: beer alcohol intake frequency: holidays/special occasions only Hx Substance Use: No Physical Exam Vital Signs Last Vital Signs Temp 36.6 C 09/14/20 07:19 Pulse 57 L 09/14/20 07:19 Resp 16 09/14/20 07:19 BP 174/65 H 09/14/20 07:19 Pulse Ox 90 09/14/20 07:19 Testing Laboratory Results 09/14/20 06:30 09/14/20 06:30 PT 11.2 Seconds (9.0-12.0) 09/14/20 06:30 INR 1.1 (0.9-1.1) 09/14/20 06:30 Electrocardiogram Date: 09/13/20 Findings: + RBBB and + pertinent finding (SR @ 62 w/frequent PVC's;low voltage QRS;RBBB;septal infarct ? age) Chest X-Ray Date: 09/13/20 Findings: + cardiomegaly and + pulmonary vascular congestion (mild central) Echocardiogram Date: 05/08/20 EF: 60% LV Function: normal RWMA: + none Other Findings: + LVH Valvular Disease: + (moderate-severe w/moderate calcification of AV leaflets;AVArea-0.9 cm2) TR-mild;mild pulmonary HTN-PA sys. pressure 39 torr Stress Test Date: 12/07/19 Type: nuclear (lexiscan nuclear -neg. for ischemia;NL WM;EF-64%)
[2020-09-14] MEDS: hydrALAZINE TAB 50 MG TAB PO SCH ×2 (18:25→23:36)
[2020-09-14] MEDS: MAGNESIUM OXIDE 400 MG TAB PO SCH (21:04)
[2020-09-15] MEDS: HYDROCORTISONE SOD 50 MG in SYRINGE 0 ML IV SCH ×3 (05:52→21:17)
[2020-09-15] MEDS: hydrALAZINE TAB 50 MG TAB PO SCH ×4 (05:52→23:19)
[2020-09-15] MEDS: HYDROmorphone HCL 2 MG TAB PO PRN ×3 (05:57→17:46)
[2020-09-15 06:07] LABS: Hematocrit (blood only) 34.5 % (42-52); Hemoglobin 11.7 g/dL (14.0-18.0); Mean Corpuscular Hemoglobin 34.8 pg (25-34); Mean Corpuscular Hgb Conc 33.9 g/dL (32-36); Mean Corpuscular Volume 102.7 fL (80-100); Mean Platelet Volume 11.3 fL (7.4-10.4); Platelet Count 135 K/uL (130-400); RDW Coefficient of Variation 12.6 % (11.5-14.5); Red Blood Count 3.36 M/uL (4.7-6.1); White Blood Count 6.35 K/uL (4.8-10.8)
[2020-09-15 06:44] LABS: BUN Creatinine Ratio 20.2 (10-20); Calcium 8.9 mg/dl (8.5-10.1); Creatinine Clr Calc Pharmacy 44.8 ml/min; Est GFR (African American) 57.1; Est GFR (Non-African American) 49.3; Potassium 4.5 mmol/L (3.5-5.1)
[2020-09-15] MEDS: CYANOCOBALAMIN 500 MCG TABLET (VITAMIN B-12) PO SCH (08:44)
[2020-09-15] MEDS: DOCUSATE SODIUM 100 MG CAP PO SCH ×2 (08:44→21:16)
[2020-09-15] MEDS: PANTOprazole 40 MG TAB PO SCH ×2 (08:44→21:16)
[2020-09-15] MEDS: MAGNESIUM OXIDE 400 MG TAB PO SCH ×2 (08:44→21:16)
[2020-09-15] MEDS: ATORVASTATIN 40 MG TAB PO SCH (08:44)
[2020-09-15] MEDS: FINASTERIDE 5 MG TAB PO SCH (08:44)
[2020-09-15] MEDS: ALFUZOSIN HCL 10 MG TAB PO SCH (08:44)
[2020-09-15] MEDS: METOPROLOL SUCC 25MG EXT REL TAB PO SCH (08:44)
[2020-09-15] MEDS: amLODIPine BESYLATE 5 MG TAB PO SCH (08:44)
--- NOTE | 2020-09-15 11:21 | Hospitalist Progress Note ---
Date of Service September 15, 2020 Assessment & Plan (1) Intractable low back pain: (2) HTN (hypertension): (3) CAD (coronary artery disease): (4) HLD (hyperlipidemia): (5) GERD (gastroesophageal reflux disease): (6) CKD (chronic kidney disease), stage III: (7) Spinal stenosis: (8) History of lumbar laminectomy for spinal cord decompression: (9) H/O neck surgery: (10) Lumbar stenosis with neurogenic claudication: Will follow along with Dr Guerrier, TITA c 1st degree AVB, Cards on case, NPO, OR Today, Pain control, Pamelor, continue Metoprolol even if NPO, Amlodipine, Hold Torsemide, monitor daily labs. Labs Checked ROS-No Headache, No Visual Changes, No Nausea, No Vomiting, No Fever, No Chills, No Neck Pain or Stiffness, No Chest Pain, No Palpitations, No SOB, No BARRERA, No Cough, No Sputum, No Wheezing, No Abdominal Pain, No Diarrhea, No Hematemesis, No Hemoptysis, No Unexpected Weight Loss, No Flank pain, No Melena, No Hematochezia, No Frequency, No Urgency, No Burning, No Hematuria, No Rashes, No Diaphoresis. Appetite is Normal, +LBP c Pain down R>LLE Physical Exam Gen-AAO x 3, Mod to Severe Back Pain, Afebrile Head-NCAT, EOMI, PERRLA, Anicteric Sclera, No Posterior Pharyngeal Erythema Neck-Supple, No JVD, No Thyromegaly, No Masses, No LAD, No Bruits Lungs-Clear to Auscultation Bilaterally, No Rales, No Rhonchi, No Wheezing, No Crepitus Chest-No S4, +S1, +S2, No S3, No Murmurs, No Rubs, No Gallops, No Ectopy Abdomen-Soft, Bowel Sounds Present, Non Tender, Non Distended, No Hepatomegaly, No Splenomegaly, No Palpable Masses, No Rebound, No Rigidity, No Guarding Musculoskeletal-Full Range of Motion Bilaterally, No CVAT Extremities-No Cyanosis, No Clubbing, No Edema Nuero-Cranial Nerves II-XII grossly intact, Motor WNL, DTRs WNL, Strength WNL, Non Focal Psych-Normal Mood Admission and Anticipated Discharge Date Admission Date: September 15, 2020 Results & Data Results & Data ([facility]) Vital Signs (Past 12 Hours) Vital Signs Temp Pulse Resp BP Pulse Ox 09/15/20 07:10 36.7 C 60 18 166/71 H 94 09/15/20 05:50 159/72 H 09/14/20 23:31 37.2 C 64 18 179/71 H 92
--- NOTE | 2020-09-15 14:16 | Orthopedic Progress Note ---
Date of Service September 15, 2020 Assessment & Plan (1) Lumbar stenosis with neurogenic claudication: Admission and Anticipated Discharge Date Admission Date: September 15, 2020 At this time we unable to perform surgery today secondary to staffing issues about the [facility] we will try for tomorrow afternoon. Subjective Patient has continued back and severe leg pain Physical Exam Physical Exam: Patient is in obvious distress. Still significant weakness to lower extremities with standing Results & Data ([facility]) Vital Signs (Past 12 Hours) Vital Signs Temp Pulse Resp BP Pulse Ox 09/15/20 13:56 60 167/83 H 09/15/20 07:10 36.7 C 60 18 166/71 H 94 09/15/20 05:50 159/72 H
[2020-09-15] MEDS: HYDROmorphone INJ 0.5 MG/0.5 ML SYR IV PRN ×2 (15:07→21:23)
[2020-09-16] MEDS: hydrALAZINE TAB 50 MG TAB PO SCH ×4 (05:52→23:20)
[2020-09-16] MEDS: HYDROCORTISONE SOD 50 MG in SYRINGE 0 ML IV SCH ×3 (05:52→21:17)
[2020-09-16] MEDS: HYDROmorphone HCL 2 MG TAB PO PRN ×2 (05:52→22:58)
[2020-09-16 06:38] LABS: Hemoglobin 11.8 g/dL (14.0-18.0); Mean Corpuscular Hemoglobin 34.6 pg (25-34); Mean Corpuscular Hgb Conc 33.7 g/dL (32-36); Mean Corpuscular Volume 102.6 fL (80-100); Mean Platelet Volume 11.5 fL (7.4-10.4); Platelet Count 145 K/uL (130-400); RDW Coefficient of Variation 12.9 % (11.5-14.5); RDW Standard Deviation 48.8 fL (36.4-46.3); Red Blood Count 3.41 M/uL (4.7-6.1); White Blood Count 9.71 K/uL (4.8-10.8)
[2020-09-16 07:11] LABS: BUN Creatinine Ratio 25.6 (10-20); Calcium 9.4 mg/dl (8.5-10.1); Creatinine Clr Calc Pharmacy 43.5 ml/min; Est GFR (African American) 55.1; Est GFR (Non-African American) 47.5
[2020-09-16] MEDS: CYANOCOBALAMIN 500 MCG TABLET (VITAMIN B-12) PO SCH (07:25)
[2020-09-16] MEDS: MAGNESIUM OXIDE 400 MG TAB PO SCH ×2 (07:25→21:11)
[2020-09-16] MEDS: DOCUSATE SODIUM 100 MG CAP PO SCH ×2 (07:25→21:11)
[2020-09-16] MEDS: PANTOprazole 40 MG TAB PO SCH ×2 (07:25→21:11)
[2020-09-16] MEDS: METOPROLOL SUCC 25MG EXT REL TAB PO SCH (07:31)
[2020-09-16] MEDS: ATORVASTATIN 40 MG TAB PO SCH (07:32)
[2020-09-16] MEDS: amLODIPine BESYLATE 5 MG TAB PO SCH (07:32)
[2020-09-16] MEDS: ALFUZOSIN HCL 10 MG TAB PO SCH (07:32)
[2020-09-16] MEDS: FINASTERIDE 5 MG TAB PO SCH (07:32)
[2020-09-16] MEDS: traMADol HCL 50 MG TABLET PO PRN ×2 (09:24→21:14)
[2020-09-16] MEDS ORDERED: fentaNYL citrate 100 MCG/2 ML VIAL ONE ×3 (09:36→14:42)
--- NOTE | 2020-09-16 09:48 | Hospitalist Progress Note ---
Date of Service September 16, 2020 Assessment & Plan (1) Intractable low back pain: (2) HTN (hypertension): (3) CAD (coronary artery disease): (4) HLD (hyperlipidemia): (5) GERD (gastroesophageal reflux disease): (6) CKD (chronic kidney disease), stage III: (7) Spinal stenosis: (8) History of lumbar laminectomy for spinal cord decompression: (9) H/O neck surgery: (10) Lumbar stenosis with neurogenic claudication: Continue to follow along with TITA Hidalgo c 1st degree AVB, Cards on case, NPO, OR Soon, Pain control, Pamelor, continue Metoprolol even if NPO, Amlodipine, Hold Torsemide, monitor daily labs. Labs Checked ROS-No Headache, No Visual Changes, No Nausea, No Vomiting, No Fever, No Chills, No Neck Pain or Stiffness, No Chest Pain, No Palpitations, No SOB, No BARRERA, No Cough, No Sputum, No Wheezing, No Abdominal Pain, No Diarrhea, No Hematemesis, No Hemoptysis, No Unexpected Weight Loss, No Flank pain, No Melena, No Hematochezia, No Frequency, No Urgency, No Burning, No Hematuria, No Rashes, No Diaphoresis. Appetite is Normal, +LBP c Pain down R>LLE Physical Exam Gen-AAO x 3, Mod Back Pain, Afebrile Head-NCAT, EOMI, PERRLA, Anicteric Sclera, No Posterior Pharyngeal Erythema Neck-Supple, No JVD, No Thyromegaly, No Masses, No LAD, No Bruits Lungs-Clear to Auscultation Bilaterally, No Rales, No Rhonchi, No Wheezing, No Crepitus Chest-No S4, +S1, +S2, No S3, No Murmurs, No Rubs, No Gallops, No Ectopy Abdomen-Soft, Bowel Sounds Present, Non Tender, Non Distended, No Hepatomegaly, No Splenomegaly, No Palpable Masses, No Rebound, No Rigidity, No Guarding Musculoskeletal-Full Range of Motion Bilaterally, No CVAT Extremities-No Cyanosis, No Clubbing, No Edema Nuero-Cranial Nerves II-XII grossly intact, Motor WNL, DTRs WNL, Strength WNL, Non Focal Psych-Normal Mood Admission and Anticipated Discharge Date Admission Date: September 15, 2020 Results & Data Results & Data ([facility]) Vital Signs (Past 12 Hours) Vital Signs Temp Pulse Pulse Resp BP Pulse Ox 09/16/20 07:33 61 09/16/20 07:05 36.7 C 59 L 16 188/81 H 93 09/16/20 06:18 190/81 H 09/16/20 05:49 201/83 H 09/15/20 23:14 37.0 C 48 L 18 143/66 H 95
[2020-09-16] MEDS ORDERED: BACITRACIN INJ 50,000 UNIT VIAL ONE (12:34)
[2020-09-16] MEDS ORDERED: BUPIVACAINE/EPINEPHRINE 0.5% MPF 1:200,000 30 ML VIAL ONE (12:34)
--- NOTE | 2020-09-16 12:55 | History & Physical Bridge Note ---
Date of Service September 16, 2020 History & Physical Bridge Note I have examined the patient, reviewed the History & Physical and in the interval since the performance of the History & Physical I have noted the following changes of clinical significance: no changes noted
[2020-09-16] MEDS ORDERED: ePHEDrine sulfate 50 MG/ML AMP IV PRN (12:57)
[2020-09-16] MEDS ORDERED: PROMETHAZINE HCL 12.5 MG in SODIUM CHLORIDE 0.9% 50 ML IV PRN ×2 (12:57→18:25)
[2020-09-16] MEDS ORDERED: ONDANSETRON INJ 2 MG/ML 2 ML VIAL IV PRN ×2 (12:57→18:25)
[2020-09-16] MEDS ORDERED: ATROPINE SULFATE 0.1 MG/ML 10ML SYR IV PRN (12:57)
[2020-09-16] MEDS ORDERED: ceFAZolin 2,000 MG/15 ML IV PUSH IV ONE (13:00)
[2020-09-16] MEDS ORDERED: ceFAZolin 2000MG 2,000 MG/15 ML SYR IV ONE (13:10)
[2020-09-16] MEDS ORDERED: LIDOCAINE HCL 2% 2 ML VIAL/AMP(20MG/ML) INFIL ONE (13:45)
[2020-09-16] MEDS ORDERED: PROPOFOL IV EMULSION 10 MG/ML 20 ML VIAL IV ONE (13:45)
[2020-09-16] MEDS ORDERED: ROCURONIUM BROMIDE 10 MG/ML 5 ML VIAL IV ONE (13:46)
[2020-09-16] MEDS ORDERED: DEXAMETHASONE SOD INJ 4 MG/ML VIAL ONE (13:46)
[2020-09-16] MEDS ORDERED: ONDANSETRON INJ 2 MG/ML 2 ML VIAL ONE (13:46)
[2020-09-16] MEDS ORDERED: FLOSEAL HEMOSTATIC MATRIX 10ML TOP ONE (14:10)
[2020-09-16] MEDS: LACTATED RINGER'S 1,000 ML IV SCH ×2 (15:26→18:40)
--- NOTE | 2020-09-16 16:07 | Operative Report ---
Post Operative Report Pre & Post Diagnosis Operation Date: 09/16/20 13:00 Pre-Op Diagnosis: Lumbar stenosis with neurogenic claudication Post-Op Diagnosis: Lumbar stenosis with neurogenic claudication I identified the patient and participated in the time-out.: Yes Procedure Operation Date: 09/16/20 13:00 Actual Procedures #1 decompression with bilateral medial facetectomies and foraminotomies T11-T12, T12-L1, L1-L2. #2 posterior spinal fusion T11-L3. #3 placed posterior instrumentation T11-L1. #4 interbody fusion T12-L1. #5 placement peek cage 7 x 22 mm at T12-L1. #6 placement locally harvested morselized autograft in the posterior gutters per #7 placement infuse collagen sponge bone master graft in the posterior lateral gutters and ostial amp interbody space. Surgeon Francisco Guerrier, DO Estate Planning Director Allison Mcdaniel Estimated Blood Loss 400 Findings See Below The patient is 5 feet 7 inches tall weighing over 92 kg with a BMI in excess of 32. The patient's body habitus did add increased technical difficulty adding at least 50% increase to the operative time. Specimens None Indications This is an 85-year-old male well-known to me the presents with marked decline in status over the past several weeks with inability to ambulate. Subsequently he is here for urgent decompression fusion. Description of Procedure Patient was met with identified informed consent obtained. Patient was then taken to the operative suite underwent a patient placed in a prone position on the [place] table top Arthur frame. All bony prominences well-padded eyes inspected to ensure no external pressure placed upon the bed at this point the thoracolumbar spine is prepped and draped no sterile fashion. Sharp dissection with the assistance of Bovie cautery was performed down to and exposing the lamina and transverse processes of T11 T12-L1 and instrumentation at L2 and L3 bilaterally. I did appreciate some continued motion at the L2-L3 level. Then performed a laminectomy L1 T12 and proximal laminectomy T11 to address severe central lateral recess stenosis. Pedicle screw was then placed in T11 T12-L1 and by way of a transforaminal approach on the right complete discectomy of T12- L1 was performed endplates curetted to subcortical being bone and a 7 x 22 mm peek cage filled with osteobone graft tapped in position. The proper sized rods were then cut contoured and locked in position bilaterally. This included sharply took on the left and a connector on the right. And then burred the transverse processes of T11-T12 L1-L2 and L3 to subcortical bleeding bone placed infuse collagen sponge mass graft in the posterior gutters. 15 round SOO drain was then inserted. Incision was then closed with 1 Vicryl fascia 2-0 Vicryl subcutaneously and 4 Monocryl for final skin closure. Steri-Strip sterile dressings placed. Patient waken taken PACU stable condition. Please note spinal cord monitoring visualized at the procedure no changes noted. Bonita Mcdaniel was present throughout the entire procedure involved in patient positioning complex portions of the surgery and final skin closure. I attest to the content of the Intraoperative Record and any orders documented therein. Any exceptions are noted below.
[2020-09-16] MEDS: fentaNYL citrate 100 MCG/2 ML VIAL IV PRN ×4 (16:40→16:55)
--- NOTE | 2020-09-16 16:42 | Fluoroscopy Report ---
FL lumbar spine 2-3V CLINICAL HISTORY: T12-L2 DECOMPRESSION/FUSION COMPARISON STUDY: CT and MRI of the lumbar spine December 13, 2018. FLUOROSCOPY TIME: 37 seconds. FLUOROSCOPIC IMAGES: 4 FINDINGS: Exam localization is difficult given partial visualization of the lumbar spine. Images demo nstrate a multilevel discectomy as well as bilateral pedicle screw fusion with interconnecting rods. Visualized portions of the hardware are intact. There are no unexpected radiopaque foreign bodies. IMPRESSION: Fluoroscopy provided during multilevel posterior decompression and bilateral pedicle scr ew fusion. ACT 112: Negative or not required by law. Electronically signed by: Jeanmarie Strange M.D. 09/16/2020 4:41 PM
[2020-09-16] MEDS: HYDROmorphone INJ 2 MG/ML SYR/VIAL IV PRN ×4 (16:50→17:10)
[2020-09-16] MEDS ORDERED: MIDAZOLAM HCL 1 MG/ML 2ML VIAL ONE (17:13)
[2020-09-16] MEDS ORDERED: MIDAZOLAM HCL 1 MG/ML 2ML VIAL IV STA ×2 (17:14→17:31)
--- NOTE | 2020-09-16 18:01 | Anesthesiology Progress Note ---
Date of Service September 16, 2020 Anesthesia Post Procedure Vital Signs Vital Signs: Temp Pulse Pulse Resp BP Pulse Ox 09/16/20 17:50 71 16 175/76 H 99 09/16/20 17:40 66 14 161/64 H 99 09/16/20 17:30 36.8 C 65 17 161/64 H 98 09/16/20 17:20 65 17 158/68 H 98 09/16/20 17:10 72 19 158/68 H 98 09/16/20 17:00 72 19 158/68 H 98 09/16/20 16:50 68 13 155/56 H 95 09/16/20 16:40 65 17 169/71 H 98 09/16/20 16:31 36.4 C L 60 11 L 198/92 H 98 09/16/20 12:19 36.6 C 58 L 20 162/89 H 94 09/16/20 11:58 59 L 156/51 H 09/16/20 07:33 61 09/16/20 07:05 36.7 C 59 L 16 188/81 H 93 09/16/20 06:18 190/81 H 09/16/20 05:49 201/83 H 09/15/20 23:14 37.0 C 48 L 18 143/66 H 95 Pain Intensity Back: Pain Intensity: 6 Transfer of Care Handoff Completed per policy Notes Mental Status: alert / awake / arousable and participated in evaluation Patient Amnestic to Procedure: Yes Nausea / Vomiting: adequately controlled Pain: adequately controlled Airway Patency, RR, SpO2: stable & adequate BP & HR: stable & adequate Hydration State: stable & adequate Anesthetic Complications: no major complications apparent and Pt Satisfied with anesthetic care
[2020-09-16] MEDS ORDERED: ALUMINUM/MAGNESIUM SUSP 30 ML UDC PO PRN (18:25)
[2020-09-16] MEDS ORDERED: ONDANSETRON 4 MG OD TAB PO PRN (18:25)
[2020-09-16] MEDS ORDERED: FAMOTIDINE 20 MG TAB PO PRN (18:25)
[2020-09-16] MEDS ORDERED: MAGNESIUM HYDROXIDE SUSP 30 ML UDC PO PRN (18:25)
[2020-09-16] MEDS ORDERED: DO NOT ADMINISTER PNEUMOCOCCAL VACCINE PRN (18:25)
[2020-09-16] MEDS ORDERED: ACETAMINOPHEN 1,000 MG/100 ML VIAL IV PRN (18:25)
[2020-09-16] MEDS ORDERED: ACETAMINOPHEN 500 MG TAB PO PRN (18:25)
[2020-09-16] MEDS ORDERED: hydrOXYzine HCl 25 MG TAB PO PRN (18:25)
[2020-09-16] MEDS ORDERED: LORazepam 0.5 MG TAB PO PRN (18:25)
[2020-09-16] MEDS ORDERED: NALOXONE HCL 0.4 MG/1 ML VIAL/CARP IV PRN (18:25)
[2020-09-16] MEDS ORDERED: DO NOT ADMINISTER FLU VACCINE PRN (18:25)
[2020-09-16] MEDS ORDERED: diphenhydrAMINE Capsule 25 MG CAP PO PRN (18:25)
[2020-09-16] MEDS ORDERED: METOCLOPRAMIDE HCL INJ 5 MG/ML 2 ML VIAL IV PRN (18:25)
[2020-09-16] MEDS ORDERED: LORazepam 0.5 MG/1 ML VIAL IV PRN (18:25)
[2020-09-16] MEDS ORDERED: SOD PHOSPHATE/SOD BIPHOSPHATE ENEMA 132 ML BTL PR PRN (18:25)
[2020-09-16] MEDS: SODIUM CHLORIDE 0.9% 1000ML 1,000 ML IV SCH (19:22)
[2020-09-16 20:51] LABS: Hematocrit (blood only) 32.9 % (42-52); Hemoglobin 11.3 g/dL (14.0-18.0); Immature Granulocytes # (auto) 0.04 K/uL (0.00-0.02); Immature Granulocytes % (auto) 0.3 %; Lymphocytes # (auto) 0.79 K/uL (1.2-3.4); Mean Corpuscular Hemoglobin 35.1 pg (25-34); Mean Corpuscular Hgb Conc 34.3 g/dL (32-36); Mean Corpuscular Volume 102.2 fL (80-100); Mean Platelet Volume 11.1 fL (7.4-10.4); Monocytes # (auto) 1.33 K/uL (0.11-0.59); Monocytes % (auto) 8.4 %; Neutrophils # (auto) 13.71 K/uL (1.4-6.5); Neutrophils % (auto) 86.3 %; Platelet Count 147 K/uL (130-400); RDW Coefficient of Variation 12.8 % (11.5-14.5); RDW Standard Deviation 47.9 fL (36.4-46.3); Red Blood Count 3.22 M/uL (4.7-6.1); White Blood Count 15.87 K/uL (4.8-10.8)
[2020-09-16] MEDS: ceFAZolin 2000MG 2,000 MG/15 ML SYR IV SCH (21:07)
[2020-09-16] MEDS: DOCUSATE SODIUM/SENNA 50/8.6MG TAB PO SCH (21:11)
[2020-09-16 21:16] LABS: BUN Creatinine Ratio 24.3 (10-20); Calcium 8.9 mg/dl (8.5-10.1); Creatinine Clr Calc Pharmacy 41.6 ml/min; Est GFR (African American) 52.3; Est GFR (Non-African American) 45.1; Magnesium 1.9 mg/dl (1.8-2.4); Potassium 4.2 mmol/L (3.5-5.1)
[2020-09-16 21:20] LABS: Troponin I 0.038 ng/ml (0-0.045)
[2020-09-17] MEDS: HYDROmorphone HCL 2 MG TAB PO PRN ×2 (04:52→11:03)
[2020-09-17] MEDS: hydrALAZINE TAB 50 MG TAB PO SCH ×3 (04:52→17:31)
[2020-09-17] MEDS: HYDROCORTISONE SOD 50 MG in SYRINGE 0 ML IV SCH ×3 (04:57→21:37)
[2020-09-17] MEDS: ceFAZolin 2000MG 2,000 MG/15 ML SYR IV SCH (04:57)
[2020-09-17] MEDS: SODIUM CHLORIDE 0.9% 1000ML 1,000 ML IV SCH ×2 (06:35→14:28)
[2020-09-17 07:15] LABS: Hematocrit (blood only) 31.4 % (42-52); Hemoglobin 10.7 g/dL (14.0-18.0); Immature Granulocytes # (auto) 0.05 K/uL (0.00-0.02); Immature Granulocytes % (auto) 0.3 %; Lymphocytes # (auto) 1.03 K/uL (1.2-3.4); Lymphocytes % (auto) 6.3 %; Mean Corpuscular Hemoglobin 34.6 pg (25-34); Mean Corpuscular Hgb Conc 34.1 g/dL (32-36); Mean Corpuscular Volume 101.6 fL (80-100); Mean Platelet Volume 11.1 fL (7.4-10.4); Monocytes # (auto) 1.83 K/uL (0.11-0.59); Monocytes % (auto) 11.2 %; Neutrophils # (auto) 13.49 K/uL (1.4-6.5); Neutrophils % (auto) 82.2 %; Platelet Count 140 K/uL (130-400); RDW Coefficient of Variation 12.9 % (11.5-14.5); RDW Standard Deviation 47.3 fL (36.4-46.3); Red Blood Count 3.09 M/uL (4.7-6.1)
[2020-09-17 07:43] LABS: BUN Creatinine Ratio 23.4 (10-20); Calcium 8.6 mg/dl (8.5-10.1); Creatinine Clr Calc Pharmacy 41.1 ml/min; Est GFR (African American) 51.4; Est GFR (Non-African American) 44.3; Potassium 4.1 mmol/L (3.5-5.1)
[2020-09-17] MEDS: CYANOCOBALAMIN 500 MCG TABLET (VITAMIN B-12) PO SCH (08:03)
[2020-09-17] MEDS: DOCUSATE SODIUM 100 MG CAP PO SCH ×2 (08:04→21:37)
[2020-09-17] MEDS: PANTOprazole 40 MG TAB PO SCH ×2 (08:04→21:37)
[2020-09-17] MEDS: MAGNESIUM OXIDE 400 MG TAB PO SCH ×2 (08:04→21:37)
[2020-09-17] MEDS: traMADol HCL 50 MG TABLET PO PRN ×2 (08:06→20:26)
--- NOTE | 2020-09-17 08:26 | Electrocardiogram Report ---
Test Reason : Blood Pressure : / mmHG Vent. Rate : 065 BPM Atrial Rate : 065 BPM P-R Int : 154 ms QRS Dur : 130 ms QT Int : 480 ms P-R-T Axes : 007 022 -01 degrees QTc Int : 499 ms Sinus rhythm with frequent Premature ventricular complexes in a pattern of bigeminy Right bundle branch block Abnormal ECG When compared with ECG of 16-SEP-2020 20:27, Premature ventricular complexes are now Present Premature atrial complexes are no longer Present Confirmed by Tej Brady ([id number]) on 09/17/2020 8:33:35 AM Referred By: REFERRED SELF Confirmed By:Tej Brady
[2020-09-17] MEDS: FINASTERIDE 5 MG TAB PO SCH (08:48)
[2020-09-17] MEDS: ALFUZOSIN HCL 10 MG TAB PO SCH (08:48)
[2020-09-17] MEDS: amLODIPine BESYLATE 5 MG TAB PO SCH (08:48)
[2020-09-17] MEDS: ATORVASTATIN 40 MG TAB PO SCH (08:48)
--- NOTE | 2020-09-17 10:47 | Orthopedic Progress Note ---
Date of Service September 17, 2020 Assessment & Plan (1) Spinal stenosis: Admission and Anticipated Discharge Date Admission Date: September 15, 2020 This time when encouraged him to undergo physical therapy as tolerated. Definitely plan for bed to chair today. Subjective Patient's back pain is controlled. Leg symptoms markedly improved. This morning he denies any shortness of breath or chest pain. Physical Exam Physical Exam: Patient is comfortable is excellent strength testing. Results & Data ([facility]) Vital Signs (Past 12 Hours) Vital Signs Temp Pulse Pulse Resp BP Pulse Ox 09/17/20 07:51 36.6 C 53 L 19 168/70 H 96 09/17/20 05:00 36.5 C 62 18 163/63 H 95 09/17/20 00:00 60 09/16/20 23:55 36.9 C 55 L 19 150/85 H 98 09/16/20 23:20 166/71 H
--- NOTE | 2020-09-17 12:49 | Cardiology Progress Note ---
Date of Service September 17, 2020 Assessment & Plan (1) Preop cardiovascular exam: Patient with complex cardiac history tolerated necessary and urgent back surgery with good clinical response. Would recommend continuing current therapies, maintain telemetry until a.m. Taper stress dose steroid (2) Nonrheumatic aortic (valve) stenosis: (3) HTN (hypertension): (4) CAD (coronary artery disease): (5) Lumbar stenosis with neurogenic claudication: Admission and Anticipated Discharge Date Admission Date: September 15, 2020 Subjective Patient was seen and examined, chart, medications, telemetry reviewed. Patient substantially more comfortable this morning postoperatively. No chest pains or dizziness. Leg pain and back pain remarkably improved Telemetry reveals complex atrial and ventricular ectopy, intermittent bigeminy as in past. Eating and drinking tolerating medications. No fevers or chills Review of Systems Review of Systems: All systems reviewed & are unremarkable except as noted in HPI & below Physical Exam Constitutional: WD/WN, vitals as above + cushingoid (Mild) Eyes: PERRL, conjunctivae normal, anicteric sclerae ENMT: external ear and nose normal, oropharynx normal Neck: trachea midline, no thyromegaly + thick neck Respiratory: normal respiratory effort, lungs clear to auscultation Cardiovascular: Rate/Rhythm: regular rate and regular rhythm Heart Sounds: normal S1 and + murmur (Harsh grade 3/6 systolic murmur, no diastolic murmur); + abnormal S2 (S2 is diminished) and no gallop Palpation: normal PMI Vessels: normal carotid upstroke and radial pulses present; no JVD and no carotid bruit Extremities: no edema Gastrointestinal (Abdomen): normal bowel sounds, soft, nontender, no hepatosplenomegaly Musculoskeletal: no cyanosis or clubbing, extremities motor strength 5/5 Skin: no rashes, warm and dry Neurologic: PERRL, EOMI, accommodation nl, no face palsy, no dysarthria Psychiatric: A+Ox3, euthymic affect Results & Data ([facility]) Vital Signs (Past 12 Hours) Vital Signs Temp Pulse Resp BP Pulse Ox 09/17/20 11:39 36.7 C 86 18 142/60 H 94 09/17/20 07:51 36.6 C 53 L 19 168/70 H 96 09/17/20 05:00 36.5 C 62 18 163/63 H 95 Laboratory Results Laboratory Results - last 24 hr 09/16/20 09/16/20 09/17/20 20:32 20:32 06:42 WBC 15.87 H 16.40 H RBC 3.22 L 3.09 L Hgb 11.3 L 10.7 L Hct 32.9 L 31.4 L MCV 102.2 H 101.6 H MCH 35.1 H 34.6 H MCHC 34.3 34.1 RDW Std Deviation 47.9 H 47.3 H RDW Coeff of Sum[place] 12.8 12.9 Plt Count 147 140 MPV 11.1 H 11.1 H Immature Gran % (Auto) 0.3 0.3 Neut % (Auto) 86.3 82.2 Lymph % (Auto) 5.0 6.3 Pratt % (Auto) 8.4 11.2 Eos % (Auto) 0.0 0.0 Baso % (Auto) 0.0 0.0 Neut # (Auto) 13.71 H 13.49 H Lymph # (Auto) 0.79 L 1.03 L Pratt # (Auto) 1.33 H 1.83 H Eos # (Auto) 0.00 0.00 Baso # (Auto) 0.00 0.00 Immature Gran # (Auto) 0.04 H 0.05 H Sodium 141 Potassium 4.2 Chloride 104 Carbon Dioxide 28 Anion Gap 9.0 BUN 34 H Creatinine 1.41 H Est Cr Clr Drug Dosing 41.6 Est GFR ( Amer) 52.3 Est GFR (Non-Af Amer) 45.1 BUN/Creatinine Ratio 24.3 H Glucose 192 H Calcium 8.9 Magnesium 1.9 Troponin I 0.038 09/17/20 09/17/20 06:42 07:21 WBC RBC Hgb Hct MCV MCH MCHC RDW Std Deviation RDW Coeff of Suma Plt Count MPV Immature Gran % (Auto) Neut % (Auto) Lymph % (Auto) Pratt % (Auto) Eos % (Auto) Baso % (Auto) Neut # (Auto) Lymph # (Auto) Pratt # (Auto) Eos # (Auto) Baso # (Auto) Immature Gran # (Auto) Sodium 138 Potassium 4.1 Chloride 104 Carbon Dioxide 26 Anion Gap 8.0 BUN 34 H Creatinine 1.43 H Est Cr Clr Drug Dosing 41.1 Est GFR ( Amer) 51.4 Est GFR (Non-Af Amer) 44.3 BUN/Creatinine Ratio 23.4 H Glucose 191 H Calcium 8.6 Magnesium Troponin I 0.045
[2020-09-17] MEDS: LACTATED RINGER'S 1,000 ML IV SCH (14:29)
--- NOTE | 2020-09-17 14:39 | Hospitalist Progress Note ---
Date of Service September 17, 2020 Assessment & Plan (1) Lumbar stenosis with neurogenic claudication: Status post decompression and fusion of lumbar spine on 09/[address] Guerrier. He did experience some postoperative bradycardia, however, this was not accompanied with hypotension or hemodynamic instability and resolved spontaneously. He continued to remain stable overnight on telemetry in sinus rhythm with some sinus bradycardia in the 50s. Pain appears to be well controlled with some expected postoperative pain present. He is overall doing well postoperatively. Continue therapy, wound management and activity per ortho spine. (2) Post-operative state: As above. (3) Aortic stenosis, moderate: Patient recently referred to outpatient valve clinic. Currently appears euvolemic. Cautious with any intravenous fluids. (4) Chronic steroid use: Stress dose hydrocortisone given since 09/14, preoperatively. Orthospine surgeon has written for dexamethasone 8 mg IV daily which is roughly an equivalent dose to what is currently being given. We will discontinue hydrocortisone at this time. Would plan to put patient back on his chronic prednisone after intravenous steroid therapy is completed. (5) HTN (hypertension): Blood pressure slightly elevated secondary to postoperative pain and steroid use. Continue amlodipine 5 mg daily, hydralazine 50 mg p.o. every 6hrs. Continue solid pain management. (6) HLD (hyperlipidemia): Chronic, stable. Chronic, continue Lipitor 40 mg p.o. daily per home regimen. (7) GERD (gastroesophageal reflux disease): Chronic, continue Protonix 40 mg p.o. twice daily per home regimen. (8) CKD (chronic kidney disease), stage III: Chronic, appears to be at baseline. Avoid excessive NSAID therapy or other nephrotoxic substances. Renally dose medications as needed. (9) DVT prophylaxis: SCD/ambulation per orthopedics Full code Disposition-Per orthopedics. If patient remained stable with no events on tele metry overnight and discontinuing telemetry monitoring at that point. Thank you for this consultation. We will continue to follow the patient throughout this hospital stay. Christa Martinez DO [facility] hospitalist Admission and Anticipated Discharge Date Admission Date: September 15, 2020 Subjective 85 yo M s/p back surgery by Dr. Guerrier yesterday with post operative course complicated by bradycardia Patient reports feeling as though he had sawdust in his throat temporarily, and then this spontaneously improved. He otherwise has been feeling well overnight and telemetry was reviewed and negative for persistent bradycardia or heart block or other concerning pauses. Reports some expected post-operative pain. SOO drain in place with expected bloody drainage. Akbar in place. He is tolerating PO and afebrile. He does report remembering feeling confused about hi s location but is clear now. Review of Systems Review of Systems: All systems reviewed & are unremarkable except as noted in Subjective Physical Exam Physical Exam: CONSTITUTIONAL: WNWD, vitals as above, generally well- appearing EYES: normal conjunctivae, no scleral icterus ENT: external ear and nose normal, MMM RESPIRATORY: clear to auscultation throughout, no crackles, rales or wheezes, normal respiratory effort CARDIOVASCULAR: regular rate and rhythm, harsh 3/6 VIRAL heard throughout precordium referred to neck and shoulder, no JVD, no peripheral edema GASTROINTESTINAL: soft, nontender, nondistended. BACK: surgical dressing in place, +SOO drain in place with bloody drainage. MUSCULOSKELETAL: strength 5/5 throughout lower extremities bilaterally, head is normocephalic and atraumatic SKIN: warm and dry NEUROLOGIC: patellar DTRs 2+ bilat. no facial palsy, no dysarthria. CN 2-12 grossly intact, no sensory deficit, normal cognition, normal speech, no tremor PSYCHIATRIC: alert cooperative and oriented to person, place and time. Results & Data Results & Data ([facility]) Vital Signs (Past 12 Hours) Vital Signs Temp Pulse Resp BP Pulse Ox 09/17/20 11:39 36.7 C 86 18 142/60 H 94 09/17/20 07:51 36.6 C 53 L 19 168/70 H 96 09/17/20 05:00 36.5 C 62 18 163/63 H 95 Laboratory Results Short CBC 09/16/20 09/17/20 Range/Units 20:32 06:42 WBC 15.87 H 16.40 H (4.8-10.8) K/uL Hgb 11.3 L 10.7 L (14.0-18.0) g/dL Hct 32.9 L 31.4 L (42-52) % Plt Count 147 140 (130-400) K/uL BMP 09/16/20 09/17/20 20:32 06:42 Sodium 141 138 Potassium 4.2 4.1 Chloride 104 104 Carbon Dioxide 28 26 BUN 34 H 34 H Creatinine 1.41 H 1.43 H Glucose 192 H 191 H Calcium 8.9 8.6 Cardiac Enzymes 09/16/20 09/17/20 Range/Units 20:32 07:21 Troponin I 0.038 0.045 (0-0.045) ng/ml Medications Administered Current Inpatient Medications Acetaminophen (Acetaminophen 325 Mg Tab) 650 mg PO Q6H PRN PRN Reason: Pain & Pre PT Stop: 10/13/20 14:33 Al Hydrox/Mg Hydrox/Simethicone (Aluminum/Magnesium Susp 30 Ml Udc) 30 ml PO Q6H PRN PRN Reason: Dyspepsia Stop: 10/16/20 18:24 Albuterol (Albuterol 0.083% Nebu Soln 3 Ml Vial) 2.5 mg INH UD PRN PRN Reason: Shortness Of Breath Stop: 10/13/20 17:59 Alfuzosin HCl (Alfuzosin Hcl 10 Mg Tab) 10 mg PO DAILY [facility] Stop: 10/14/20 08:59 Last Admin: 09/17/20 08:48 Dose: 10 mg Documented by: Amlodipine Besylate (Amlodipine Besylate 5 Mg Tab) 5 mg PO DAILY HUSSAIN Stop: 10/14/20 08:59 Last Admin: 09/17/20 08:48 Dose: 5 mg Documented by: Atorvastatin Calcium (Atorvastatin 40 Mg Tab) 40 mg PO DAILY HUSSAIN Stop: 10/14/20 08:59 Last Admin: 09/17/20 08:48 Dose: 40 mg Documented by: Bisacodyl (Bisacodyl 10 Mg Supp) 10 mg AR DAILY PRN PRN Reason: Constipation Stop: 10/18/20 16:07 Cyanocobalamin (Cyanocobalamin 500 Mcg Tablet (Vitamin B-12)) 1,000 mcg PO DAILY HUSSAIN Stop: 10/14/20 08:59 Last Admin: 09/17/20 08:03 Dose: 1,000 mcg Documented by: Diphenhydramine HCl (Diphenhydramine Capsule 25 Mg Cap) 25 mg PO Q6H PRN PRN Reason: Allergic Rhinitis/Insomnia Stop: 10/16/20 18:24 Docusate Sodium (Docusate Sodium 100 Mg Cap) 100 mg PO BID HUSSAIN Stop: 10/13/20 20:59 Last Admin: 09/17/20 08:04 Dose: 100 mg Documented by: Famotidine (Famotidine 20 Mg Tab) 20 mg PO Q12H PRN PRN Reason: Dyspepsia Stop: 10/16/20 18:24 Finasteride (Finasteride 5 Mg Tab) 5 mg PO DAILY HUSSAIN Stop: 10/14/20 08:59 Last Admin: 09/17/20 08:48 Dose: 5 mg Documented by: Hydralazine HCl (Hydralazine Tab 50 Mg Tab) 50 mg PO Q6 HUSSAIN Stop: 10/14/20 17:59 Last Admin: 09/17/20 11:37 Dose: 50 mg Documented by: Hydromorphone HCl (Hydromorphone Hcl 2 Mg Tab) 2 mg PO Q4H PRN PRN Reason: Pain & Pre PT Stop: 09/27/20 14:33 Last Admin: 09/17/20 11:03 Dose: 2 mg Documented by: Hydroxyzine HCl (Hydroxyzine Hcl 25 Mg Tab) 25 mg PO Q8H PRN PRN Reason: Anxiety Stop: 10/16/20 18:24 Lactated Ringer's (Lr) 1,000 mls @ 15 mls/hr IV .Q24H HUSSAIN Stop: 10/13/20 14:44 Last Admin: 09/17/20 14:29 Dose: Not Given Documented by: Hydrocortisone Sodium (Succinate 50 mg/ Syringe) 1 mls @ 4 mls/min IV Q8H HUSSAIN Stop: 10/14/20 13:59 Last Admin: 09/17/20 14:28 Dose: 4 mls/min Documented by: Sodium Chloride (Nss 1000ml) 1,000 mls @ 100 mls/hr IV .Q10H HUSSAIN Stop: 10/16/20 18:24 Last Admin: 09/17/20 14:28 Dose: 100 mls/hr Documented by: Dexamethasone Sodium Phosphate (8 mg/ Syringe) 2 mls @ 1 mls/min IV DAILY HUSSAIN Stop: 10/18/20 08:59 Influenza Virus Vaccine Quadrival (Do Not Administer Flu Vaccine) 1 ea N/A PRN PRN PRN Reason: Notification Stop: 10/16/20 18:24 Lorazepam (Lorazepam 0.5 Mg Tab) 0.5 mg PO Q8H PRN PRN Reason: sedation/anxiety Stop: 10/16/20 18:24 Magnesium Hydroxide (Magnesium Hydroxide Susp 30 Ml Udc) 30 ml PO Q24H PRN PRN Reason: Constipation Stop: 10/16/20 18:24 Magnesium Oxide (Magnesium Oxide 400 Mg Tab) 400 mg PO BID HUSSAIN Stop: 10/14/20 20:59 Last Admin: 09/17/20 08:04 Dose: 400 mg Documented by: Metoclopramide HCl (Metoclopramide Hcl Inj 5 Mg/Ml 2 Ml Vial) 10 mg IV Q6H PRN PRN Reason: Nausea &/or Vomiting Stop: 10/13/20 14:33 Naloxone HCl (Naloxone Hcl 0.4 Mg/1 Ml Vial/Carp) 0.1 mg IV Q5M PRN PRN Reason: Oversedation/respiratory dep Stop: 10/16/20 18:24 Nortriptyline HCl (Nortriptyline Hcl 25 Mg Cap) 25 mg PO BID PRN PRN Reason: Pain Stop: 10/14/20 09:29 Ondansetron HCl (Ondansetron Inj 2 Mg/Ml 2 Ml Vial) 4 mg IV Q6H PRN PRN Reason: Nausea &/or Vomiting Stop: 10/13/20 14:33 Last Admin: 09/14/20 14:31 Dose: 4 mg Documented by: Pantoprazole Sodium (Pantoprazole 40 Mg Tab) 40 mg PO BID HUSSAIN Stop: 10/13/20 20:59 Last Admin: 09/17/20 08:04 Dose: 40 mg Documented by: Pneumococcal Polyvalent Vaccine (Do Not Administer Pneumococcal Vaccine) 1 ea N/A PRN PRN PRN Reason: Notification Stop: 10/16/20 18:24 Polyethylene Glycol (Polyethylene (Miralax) 17 Gm Pack) 17 gm PO Q6 HUSSAIN Stop: 10/17/20 17:59 Senna/Docusate Sodium (Docusate Sodium/Senna 50/8.6mg Tab) 2 tab PO HS HUSSAIN Stop: 10/16/20 20:59 Last Admin: 09/16/20 21:11 Dose: 2 tab Documented by: Sodium Biphosphate/Sodium Phosphate (Sod Phosphate/Sod Biphosphate Enema 132 Ml Btl) 132 ml AR ONE PRN PRN Reason: Constipation Stop: 10/16/20 18:24 Tramadol HCl (Tramadol Hcl 50 Mg Tablet) 50 mg PO Q4H PRN PRN Reason: MODERATE Pain (4,5,6) & Pre PT Stop: 03/08/21 14:33 Last Admin: 09/17/20 08:06 Dose: 50 mg Documented by:
[2020-09-17] MEDS: POLYETHYLENE (MIRALAX) 17 GM PACK PO SCH (17:31)
[2020-09-17] MEDS: DOCUSATE SODIUM/SENNA 50/8.6MG TAB PO SCH (21:36)
[2020-09-18] MEDS: POLYETHYLENE (MIRALAX) 17 GM PACK PO SCH ×5 (00:04→22:56)
[2020-09-18] MEDS: hydrALAZINE TAB 50 MG TAB PO SCH ×3 (00:06→11:53)
[2020-09-18] MEDS ORDERED: METOPROLOL TARTRATE 1 MG/ML VIAL IV STA (02:27)
[2020-09-18] MEDS ORDERED: METOPROLOL TARTRATE 1 MG/ML VIAL IV ONE (02:34)
[2020-09-18] MEDS ORDERED: oxyCODONE HCL IR 5 MG TAB (IMMEDIATE RELEASE) PO STA (02:35)
--- NOTE | 2020-09-18 02:41 | Communication Note ---
Date of Service: September 18, 2020 Made aware by RN of left-sided chest tightness going to the back with some shortness of breath. No cough symptoms. SBP 160s, CR 120s Chest x-ray as per my interpretation atelectasis, cardiomegaly EKG as per interpretation : Rate 105, A. fib, normal axis, right bundle branch block Chest pain improved after IV Metoprolol administration as per RN. troponin 0.046 glucose 210 AP Chest pain, troponin elevation secondary uncontrolled hypertension, rapid A. fib (new onset) Home beta-vanessa held a few days ago due to bradycardia Hyperglycemia DM2 documentation as per outpatient records Outpatient Hemoglobin A1c of 6.8 as of March 2020 Patient unaware of diagnosis. Resume beta-vanessa at 12.5 BID dosing (in lieu of px's home Toprol XL) for now given episodic bradycardia. Follow troponin Basal insulin, ISS BG goal [id number], carb count coverage, update hemoglobin A1c, DM education Will relay to AM provider.
[2020-09-18 02:55] LABS: Eosinophils # (auto) 0.01 K/uL (0-0.5); Eosinophils % (auto) 0.1 %; Hematocrit (blood only) 28.9 % (42-52); Hemoglobin 9.9 g/dL (14.0-18.0); Immature Granulocytes # (auto) 0.05 K/uL (0.00-0.02); Immature Granulocytes % (auto) 0.3 %; Lymphocytes # (auto) 1.61 K/uL (1.2-3.4); Lymphocytes % (auto) 10.3 %; Mean Corpuscular Hemoglobin 34.4 pg (25-34); Mean Corpuscular Hgb Conc 34.3 g/dL (32-36); Mean Corpuscular Volume 100.3 fL (80-100); Mean Platelet Volume 10.6 fL (7.4-10.4); Monocytes # (auto) 1.98 K/uL (0.11-0.59); Monocytes % (auto) 12.6 %; Neutrophils # (auto) 12.01 K/uL (1.4-6.5); Neutrophils % (auto) 76.7 %; Platelet Count 113 K/uL (130-400); RDW Coefficient of Variation 12.7 % (11.5-14.5); RDW Standard Deviation 46.9 fL (36.4-46.3); Red Blood Count 2.88 M/uL (4.7-6.1); White Blood Count 15.66 K/uL (4.8-10.8)
[2020-09-18] MEDS ORDERED: GLUCOSE 10 TABS/TUBE PO PRN (02:55)
[2020-09-18] MEDS ORDERED: GLUCOSE 40% GEL 15 GM TUBE PO PRN (02:55)
[2020-09-18] MEDS ORDERED: CARBOHYDRATES FOR HYPOGLYCEMIA PO PRN (02:55)
[2020-09-18] MEDS ORDERED: GLUCAGON FOR INJ 1 MG VIAL SQ PRN (02:55)
[2020-09-18] MEDS ORDERED: DEXTROSE 50% 50 ML SYRINGE IV PRN (02:55)
[2020-09-18] MEDS ORDERED: MAGNESIUM SULFATE / D5W 1 GM/100 ML BAG IV ONE (03:00)
[2020-09-18 03:04] LABS: Partial Thromboplastin Ratio 0.9; Partial Thromboplastin Time 24.7 Seconds (21.0-31.0)
[2020-09-18 03:12] LABS: Albumin Level 3.1 gm/dl (3.4-5.0); BUN Creatinine Ratio 24.1 (10-20); Calcium 8.1 mg/dl (8.5-10.1); Creatinine Clr Calc Pharmacy 45.2 ml/min; Est GFR (African American) 57.7; Est GFR (Non-African American) 49.8; Potassium 3.8 mmol/L (3.5-5.1)
[2020-09-18 03:20] LABS: Appearance Urine Clear (Clear); Bilirubin Urine Negative (Negative); Blood Urine Negative (Negative); Color Urine Yellow; Glucose Urine UA Negative (Negative); Ketones Urine Negative (Negative); Leukocyte Esterase Urine Trace (Negative); Nitrite Urine Negative (Negative); Protein Urine Negative (Negative); Specific Gravity Urine 1.017 (1.000-1.030); Urobilinogen Urine Negative (Negative)
[2020-09-18 03:28] LABS: Albumin Globulin Ratio 1.1 (0.9-2); Bilirubin,Total 0.5 mg/dl (0.2-1); Globulin 2.7 gm/dl (2.5-4.0); Thyroid Stimulating Hormone 0.411 uIu/ml (0.300-4.500); Total Protein 5.8 gm/dl (6.4-8.2); Troponin I 0.046 ng/ml (0-0.045)
[2020-09-18 03:30] LABS: Epithelial Cell Urine 0-5 /lpf (0-5)
[2020-09-18 03:31] LABS: Bacteria Urine Negative (Negative); WBC Urine 0-5 /hpf (0-5)
[2020-09-18] MEDS: INSULIN ASPART 100 UNITS/ML 3 ML PEN SC SCH ×5 (03:40→20:18)
[2020-09-18] MEDS ORDERED: POTASSIUM CHLORIDE CRTAB 20 MEQ TABCR PO ONE (04:00)
[2020-09-18] MEDS ORDERED: INSULIN GLARGINE SOLOSTAR 100 UNITS/ML 3 ML PEN SC ONE (04:00)
[2020-09-18 06:21] LABS: Estimated Average Glucose 157 mg/dl; Hemoglobin A1C 7.1 % (4.5-5.6)
[2020-09-18] MEDS ORDERED: LACTULOSE SYRUP 30 GM/45 ML UDP PO ONE (06:30)
--- NOTE | 2020-09-18 07:15 | XRay Report ---
XR chest 1V portable CLINICAL HISTORY: Shortness of breath. COMPARISON STUDY: Chest radiograph September 13, 2020. FINDINGS: Anterior cervical spine fusion is partially imaged. Thoracolumbar spine fusion is partially imaged. There is no pneumothorax. Pulmonary vascular congestion has resolved. There is moderate card iomegaly. There is a suspected small left pleural effusion with mild left basilar opacity. IMPRESSION: 1. Suspected small left pleural effusion with left basilar opacity. This may reflect atelectasis or c onsolidation. 2. Cardiomegaly without evidence for pulmonary edema. ACT 112: Negative or not required by law. Electronically signed by: Jeanmarie Strange M.D. 09/18/2020 7:13 AM
[2020-09-18] MEDS: DOCUSATE SODIUM/SENNA 50/8.6MG TAB PO SCH ×2 (08:07→20:12)
[2020-09-18] MEDS: CYANOCOBALAMIN 500 MCG TABLET (VITAMIN B-12) PO SCH (08:08)
[2020-09-18] MEDS: PANTOprazole 40 MG TAB PO SCH ×2 (08:08→20:10)
[2020-09-18] MEDS: ALFUZOSIN HCL 10 MG TAB PO SCH (08:08)
[2020-09-18] MEDS: FINASTERIDE 5 MG TAB PO SCH (08:08)
[2020-09-18] MEDS: MAGNESIUM OXIDE 400 MG TAB PO SCH ×2 (08:08→20:11)
[2020-09-18] MEDS: ATORVASTATIN 40 MG TAB PO SCH (08:08)
[2020-09-18] MEDS: amLODIPine BESYLATE 5 MG TAB PO SCH (08:09)
[2020-09-18] MEDS ORDERED: METOPROLOL TARTRATE 25 MG TAB PO SCH (09:00)
[2020-09-18] MEDS ORDERED: DOCUSATE SODIUM/SENNA 50/8.6MG TAB PO SCH (09:00)
[2020-09-18] MEDS ORDERED: dexAMETHasone 8 MG in SYRINGE 0 ML IV SCH (09:00)
--- NOTE | 2020-09-18 09:16 | Electrocardiogram Report ---
Test Reason : Blood Pressure : / mmHG Vent. Rate : 101 BPM Atrial Rate : 129 BPM P-R Int : 000 ms QRS Dur : 138 ms QT Int : 376 ms P-R-T Axes : 000 052 025 degrees QTc Int : 487 ms Atrial fibrillation with rapid ventricular response with premature ventricular or aberrantly conducte d complexes Right bundle branch block Abnormal ECG When compared with ECG of 16-SEP-2020 21:32, Atrial fibrillation has replaced Sinus rhythm Vent. rate has increased BY 36 BPM Confirmed by Tej Brady ([id number]) on 09/18/2020 9:15:55 AM Referred By: REFERRED SELF Confirmed By:Tej Brady
--- NOTE | 2020-09-18 09:50 | Hospitalist Progress Note ---
Date of Service September 18, 2020 Assessment & Plan (1) Lumbar stenosis with neurogenic claudication: Status post decompression and fusion of lumbar spine on 09/[address] Guerrier. He did experience some postoperative bradycardia, however, this was not accompanied with hypotension or hemodynamic instability and resolved spontaneously. He continued to remain stable overnight on telemetry in sinus rhythm with some sinus bradycardia in the 50s. Pain appears to be well controlled with some expected postoperative pain present. Overnight he had a burst of what appeared to be intermittent symptomatic atrial fibrillation with RVR associated with CP, SOB, etc. Per cardiology, no anticoagulation should be given. He is rate controlled with adjustment of bet- vanessa. Cont to monitor him one more night. (2) Post-operative state: As above. (3) Aortic stenosis, moderate: Patient recently referred to outpatient valve clinic. Currently appears euvolemic. Cautious with any intravenous fluids. (4) Chronic steroid use: Stress dose hydrocortisone given since 09/14, preoperatively. [facility]ospine surgeon has written for dexamethasone 8 mg IV daily which is roughly an equivalent dose to what is currently being given. We will discontinue hydrocortisone at this time. Would plan to put patient back on his chronic prednisone after intravenous steroid therapy is completed. (5) Steroid-induced hyperglycemia: insulin started overnight. Suregery continuing with decadron now. Cont coverage and dc at discharge from the hospital most likely. (6) HTN (hypertension): Blood pressure slightly elevated secondary to postoperative pain and steroid use. Continue amlodipine 5 mg daily, hydralazine 50 mg p.o. every 6hrs. Continue solid pain management. (7) HLD (hyperlipidemia): Chronic, stable. Chronic, continue Lipitor 40 mg p.o. daily per home regimen. (8) GERD (gastroesophageal reflux disease): Chronic, continue Protonix 40 mg p.o. twice daily per home regimen. (9) CKD (chronic kidney disease), stage III: Chronic, appears to be at baseline. Avoid excessive NSAID therapy or other nephrotoxic substances. Renally dose medications as needed. (10) DVT prophylaxis: SCD/ambulation per orthopedics Full code Disposition-Per orthopedics. If patient remained stable with no events on telemetry overnight and discontinuing telemetry monitoring at that point. Thank you for this consultation. We will continue to follow the patient throughout this hospital stay. Christa Martinez DO [facility] hospitalist Admission and Anticipated Discharge Date Admission Date: September 15, 2020 Subjective 85 yo M s/p back surgery by Dr. Guerrier with post operative course complicated by bradycardia chest pain overnight with some shortness of breath one episode lasting 15 minutes of centralized chest pain with no radiation he denies this happending before and reports he felt better after the lopresor was given Palpitations were associated and he feels better this morning. new onset atrial fibrillation developed overnight with initial rapid ventricular rate improved with Lopressor 5mg IV x 1 dose Crew Supervisor adjusted beta vanessa dosing overnight and rate is more controlled this morning. Blood sugar elevated 2/2 multiple days of stress dose steroids-->insulin also started overnight Review of Systems Review of Systems: All systems reviewed & are unremarkable except as noted in Subjective Physical Exam Physical Exam: CONSTITUTIONAL: WNWD, vitals as above, generally well- appearing EYES: normal conjunctivae, no scleral icterus ENT: external ear and nose normal, MMM RESPIRATORY: clear to auscultation throughout, no crackles, rales or wheezes, normal respiratory effort CARDIOVASCULAR: regular rate and rhythm, harsh 3/6 VIRAL heard throughout precordium referred to neck and shoulder, no JVD, no peripheral edema GASTROINTESTINAL: soft, nontender, nondistended. BACK: surgical dressing in place, +SOO drain in place with bloody drainage. MUSCULOSKELETAL: strength 5/5 throughout lower extremities bilaterally, head is normocephalic and atraumatic SKIN: warm and dry NEUROLOGIC: ] no facial palsy, no dysarthria. CN 2-12 grossly intact, no sensory deficit, normal cognition, normal speech, no tremor PSYCHIATRIC: alert cooperative and oriented to person, place and time. Results & Data Results & Data ([facility]) Vital Signs (Past 12 Hours) Vital Signs Temp Pulse Pulse Pulse Resp BP Pulse Ox 09/18/20 07:47 36.6 C 80 18 134/58 L 98 09/18/20 05:55 147/80 H 09/18/20 03:30 57 L 138/69 09/18/20 02:50 123 H 09/18/20 02:36 123 H 09/18/20 02:28 36.7 C 111 H 20 165/93 H 95 09/17/20 23:34 37.4 C 95 H 20 167/77 H 94 Laboratory Results Short CBC 09/18/20 Range/Units 02:38 WBC 15.66 H (4.8-10.8) K/uL Hgb 9.9 L (14.0-18.0) g/dL Hct 28.9 L (42-52) % Plt Count 113 L (130-400) K/uL BMP 09/18/20 02:38 Sodium 139 Potassium 3.8 Chloride 105 Carbon Dioxide 27 BUN 31 H Creatinine 1.30 Glucose 210 H Calcium 8.1 L Cardiac Enzymes 09/18/20 09/18/20 09/18/20 Range/Units 02:38 05:18 07:52 Troponin I 0.046 H* 0.055 H* 0.064 H* (0-0.045) ng/ml Liver Function 09/18/20 Range/Units 02:38 Total Bilirubin 0.5 (0.2-1) mg/dl AST 8 L (15-37) U/L ALT 11 L (12-78) U/L Alkaline Phosphatase 60 (45-117) U/L Albumin 3.1 L (3.4-5.0) gm/dl Urine 09/18/20 Range/Units 03:05 Urine Color Yellow Urine Appearance Clear (Clear) Urine pH 5.0 (4.5-7.5) Ur Specific [place] 1.017 (1.000-1.030) Urine Protein Negative (Negative) Urine Glucose (UA) Negative (Negative) Medications Administered Current Inpatient Medications Acetaminophen (Acetaminophen 325 Mg Tab) 650 mg PO Q6H PRN PRN Reason: Pain & Pre PT Stop: 10/13/20 14:33 Al Hydrox/Mg Hydrox/Simethicone (Aluminum/Magnesium Susp 30 Ml Udc) 30 ml PO Q6H PRN PRN Reason: Dyspepsia Stop: 10/16/20 18:24 Albuterol (Albuterol 0.083% Nebu Soln 3 Ml Vial) 2.5 mg INH UD PRN PRN Reason: Shortness Of Breath Stop: 10/13/20 17:59 Alfuzosin HCl (Alfuzosin Hcl 10 Mg Tab) 10 mg PO DAILY [facility] Stop: 10/14/20 08:59 Last Admin: 09/18/20 08:08 Dose: 10 mg Documented by: Amlodipine Besylate (Amlodipine Besylate 5 Mg Tab) 5 mg PO DAILY [facility] Stop: 10/14/20 08:59 Last Admin: 09/18/20 08:09 Dose: 5 mg Documented by: Atorvastatin Calcium (Atorvastatin 40 Mg Tab) 40 mg PO DAILY [facility]SS[facility] Stop: 10/14/20 08:59 Last Admin: 09/18/20 08:08 Dose: 40 mg Documented by: Bisacodyl (Bisacodyl 10 Mg Supp) 10 mg IA DAILY PRN PRN Reason: Constipation Stop: 10/18/20 16:07 Cyanocobalamin (Cyanocobalamin 500 Mcg Tablet (Vitamin B-12)) 1,000 mcg PO DAILY HUSSAIN Stop: 10/14/20 08:59 Last Admin: 09/18/20 08:08 Dose: 1,000 mcg Documented by: Dextrose (Dextrose 50% 50 Ml Syringe) 25 - 50 ml IV UD PRN; Protocol PRN Reason: Hypoglycemia Protocol Stop: 10/18/20 02:54 Diphenhydramine HCl (Diphenhydramine Capsule 25 Mg Cap) 25 mg PO Q6H PRN PRN Reason: Allergic Rhinitis/Insomnia Stop: 10/16/20 18:24 Famotidine (Famotidine 20 Mg Tab) 20 mg PO Q12H PRN PRN Reason: Dyspepsia Stop: 10/16/20 18:24 Finasteride (Finasteride 5 Mg Tab) 5 mg PO DAILY [facility]USSAIN Stop: 10/14/20 08:59 Last Admin: 09/18/20 08:08 Dose: 5 mg Documented by: Glucagon (Glucagon For Inj 1 Mg Vial) 1 mg SQ UD PRN; Protocol PRN Reason: Hypoglycemia Protocol Stop: 10/18/20 02:54 Glucose (Glucose 10 Tabs/Tube) 4 - 8 tabs PO UD PRN; Protocol PRN Reason: Hypoglycemia Protocol Stop: 10/18/20 02:54 Glucose (Glucose 40% Gel 15 Gm Tube) 15 - 30 gm PO UD PRN; Protocol PRN Reason: Hypoglycemia Protocol Stop: 10/18/20 02:54 Hydralazine HCl (Hydralazine Tab 50 Mg Tab) 50 mg PO Q6 [facility]USSAIN Stop: 10/14/20 17:59 Last Admin: 09/18/20 05:54 Dose: 50 mg Documented by: Hydromorphone HCl (Hydromorphone Hcl 2 Mg Tab) 2 mg PO Q4H PRN PRN Reason: Pain & Pre PT Stop: 09/27/20 14:33 Last Admin: 09/17/20 11:03 Dose: 2 mg Documented by: Hydroxyzine HCl (Hydroxyzine Hcl 25 Mg Tab) 25 mg PO Q8H PRN PRN Reason: Anxiety Stop: 10/16/20 18:24 Dexamethasone Sodium Phosphate (8 mg/ Syringe) 2 mls @ 1 mls/min IV DAILY HUSSAIN Stop: 10/18/20 08:59 Last Admin: 09/18/20 08:09 Dose: 1 mls/min Documented by: Influenza Virus Vaccine Quadrival (Do Not Administer Flu Vaccine) 1 ea N/A PRN PRN PRN Reason: Notification Stop: 10/16/20 18:24 Insulin Aspart (Insulin Aspart 100 Units/Ml 3 Ml Pen) 0 units SC ACHS [facility] Stop: 10/18/20 02:54 Last Admin: 09/18/20 08:11 Dose: 6 units Documented by: Insulin Glargine (Insulin Glargine Solostar 100 Units/Ml 3 Ml Pen) 5 units SC DAILY [facility] Stop: 10/19/20 08:59 Lorazepam (Lorazepam 0.5 Mg Tab) 0.5 mg PO Q8H PRN PRN Reason: sedation/anxiety Stop: 10/16/20 18:24 Magnesium Hydroxide (Magnesium Hydroxide Susp 30 Ml Udc) 30 ml PO Q24H PRN PRN Reason: Constipation Stop: 10/16/20 18:24 Magnesium Oxide (Magnesium Oxide 400 Mg Tab) 400 mg PO BID [facility] Stop: 10/14/20 20:59 Last Admin: 09/18/20 08:08 Dose: 400 mg Documented by: Metoclopramide HCl (Metoclopramide Hcl Inj 5 Mg/Ml 2 Ml Vial) 10 mg IV Q6H PRN PRN Reason: Nausea &/or Vomiting Stop: 10/13/20 14:33 Metoprolol Tartrate (Metoprolol Tartrate 25 Mg Tab) 12.5 mg PO BID [facility] Stop: 10/18/20 08:59 Last Admin: 09/18/20 08:07 Dose: 12.5 mg Documented by: Miscellaneous (Carbohydrates For Hypoglycemia ) 15 - 30 gm PO UD PRN PRN Reason: Hypoglycemia Protocol Stop: 10/18/20 02:54 Naloxone HCl (Naloxone Hcl 0.4 Mg/1 Ml Vial/Carp) 0.1 mg IV Q5M PRN PRN Reason: Oversedation/respiratory dep Stop: 10/16/20 18:24 Nortriptyline HCl (Nortriptyline Hcl 25 Mg Cap) 25 mg PO BID PRN PRN Reason: Pain Stop: 10/14/20 09:29 Ondansetron HCl (Ondansetron Inj 2 Mg/Ml 2 Ml Vial) 4 mg IV Q6H PRN PRN Reason: Nausea &/or Vomiting Stop: 10/13/20 14:33 Last Admin: 09/14/20 14:31 Dose: 4 mg Documented by: Pantoprazole Sodium (Pantoprazole 40 Mg Tab) 40 mg PO BID [facility] Stop: 10/13/20 20:59 Last Admin: 09/18/20 08:08 Dose: 40 mg Documented by: Pneumococcal Polyvalent Vaccine (Do Not Administer Pneumococcal Vaccine) 1 ea N/A PRN PRN PRN Reason: Notification Stop: 10/16/20 18:24 Polyethylene Glycol (Polyethylene (Miralax) 17 Gm Pack) 17 gm PO Q6 [facility]USSAIN Stop: 10/17/20 17:59 Last Admin: 09/18/20 05:55 Dose: Not Given Documented by: Senna/Docusate Sodium (Docusate Sodium/Senna 50/8.6mg Tab) 2 tab PO BID [facility]US[facility]IN Stop: 10/18/20 08:59 Last Admin: 09/18/20 08:07 Dose: 2 tab Documented by: Sodium Biphosphate/Sodium Phosphate (Sod Phosphate/Sod Biphosphate Enema 132 Ml Btl) 132 ml IA ONE PRN PRN Reason: Constipation Stop: 10/16/20 18:24 Tramadol HCl (Tramadol Hcl 50 Mg Tablet) 50 mg PO Q4H PRN PRN Reason: MODERATE Pain (4,5,6) & Pre PT Stop: 10/13/20 14:33 Last Admin: 09/17/20 20:26 Dose: 50 mg Documented by:
[2020-09-18] MEDS: traMADol HCL 50 MG TABLET PO PRN (09:53)
--- NOTE | 2020-09-18 12:19 | Cardiology Progress Note ---
Date of Service September 18, 2020 Assessment & Plan (1) PAT (paroxysmal atrial tachycardia): Patient with chest discomfort and tachypalpitations last evening atrial tachycardia/atrial fibrillation transient with resolved with IV metoprolol. In part secondary to beta-vanessa withdrawal/hydralazine Plan Taper hydralazine as was added for blood pressure control in the setting of acute pain. Continue usual antihypertensives Resume beta-vanessa increase metoprolol tartrate to 12.5 3 times daily with ultimate goals resume metoprolol succinate Maintain telemetry additional 24 hours (2) Nonrheumatic aortic (valve) stenosis: (3) HTN (hypertension): (4) CAD (coronary artery disease): (5) Lumbar stenosis with neurogenic claudication: Admission and Anticipated Discharge Date Admission Date: September 15, 2020 Subjective Patient seen and examined, chart, medications, telemetry reviewed. Patient last night with episode of atrial tachycardia and elevated heart rate response. Patient responded to IV metoprolol. Rhythm this morning sinus with atrial and ventricular ectopy as per baseline Patient's been off beta-vanessa due to concerns regarding bradycardia. (Patient chronic ventricular bigeminy) Review of Systems Review of Systems: All systems reviewed & are unremarkable except as noted in HPI & below Physical Exam Constitutional: WD/WN, vitals as above + cushingoid (Mild) Eyes: PERRL, conjunctivae normal, anicteric sclerae ENMT: external ear and nose normal, oropharynx normal Neck: trachea midline, no thyromegaly + thick neck Respiratory: normal respiratory effort, lungs clear to auscultation Cardiovascular: Rate/Rhythm: regular rate and regular rhythm Heart Sounds: normal S1 and + murmur (Harsh grade 3/6 systolic murmur, no diastolic murmur); + abnormal S2 (S2 is diminished) and no gallop Palpation: normal PMI Vessels: normal carotid upstroke and radial pulses present; no JVD and no carotid bruit Extremities: no edema Gastrointestinal (Abdomen): normal bowel sounds, soft, nontender, no hepatosplenomegaly Musculoskeletal: no cyanosis or clubbing, extremities motor strength 5/5 Skin: no rashes, warm and dry Neurologic: PERRL, EOMI, accommodation nl, no face palsy, no dysarthria Psychiatric: A+Ox3, euthymic affect Results & Data ([facility]) Vital Signs (Past 12 Hours) Vital Signs Temp Pulse Pulse Pulse Resp BP Pulse Ox 09/18/20 11:13 36.9 C 58 L 19 138/75 97 09/18/20 07:47 36.6 C 80 18 134/58 L 98 09/18/20 05:55 147/80 H 09/18/20 03:30 57 L 138/69 09/18/20 02:50 123 H 09/18/20 02:36 123 H 09/18/20 02:28 36.7 C 111 H 20 165/93 H 95 Laboratory Results Laboratory Results - last 24 hr 09/18/20 09/18/20 09/18/20 02:38 02:38 02:38 WBC 15.66 H RBC 2.88 L Hgb 9.9 L Hct 28.9 L MCV 100.3 H MCH 34.4 H MCHC 34.3 RDW Std Deviation 46.9 H RDW Coeff of [place] 12.7 Plt Count 113 L MPV 10.6 H Immature Gran % (Auto) 0.3 Neut % (Auto) 76.7 Lymph % (Auto) 10.3 [place] % (Auto) 12.6 Eos % (Auto) 0.1 Baso % (Auto) 0.0 Neut # (Auto) 12.01 H Lymph # (Auto) 1.61 [place] # (Auto) 1.98 H Eos # (Auto) 0.01 Baso # (Auto) 0.00 Immature Gran # (Auto) 0.05 H APTT 24.7 PTT Ratio 0.9 Sodium 139 Potassium 3.8 Chloride 105 Carbon Dioxide 27 Anion Gap 7.0 BUN 31 H Creatinine 1.30 Est Cr Clr Drug Dosing 45.2 Est GFR ( Amer) 57.7 Est GFR (Non-Af Amer) 49.8 BUN/Creatinine Ratio 24.1 H Glucose 210 H POC Glucose Estimat Average Glucose Hemoglobin A1c Lactate Calcium 8.1 L Magnesium 2.0 Total Bilirubin 0.5 AST 8 L ALT 11 L Alkaline Phosphatase 60 Troponin I 0.046 H* Total Protein 5.8 L Albumin 3.1 L Globulin 2.7 Albumin/Globulin Ratio 1.1 Procalcitonin TSH 0.411 Urine Color Urine Appearance Urine pH Ur Specific [place] Urine Protein Urine Glucose (UA) Urine Ketones Urine Blood Urine Nitrite Urine Bilirubin Urine Urobilinogen Ur Leukocyte Esterase Urine RBC Urine WBC Ur Epithelial Cells Urine Bacteria 09/18/20 09/18/20 09/18/20 03:05 03:27 03:27 WBC RBC Hgb Hct MCV MCH MCHC RDW Std Deviation RDW Coeff of [place] Plt Count MPV Immature Gran % (Auto) Neut % (Auto) Lymph % (Auto) [place] % (Auto) Eos % (Auto) Baso % (Auto) Neut # (Auto) Lymph # (Auto) [place] # (Auto) Eos # (Auto) Baso # (Auto) Immature Gran # (Auto) APTT PTT Ratio Sodium Potassium Chloride Carbon Dioxide Anion Gap BUN Creatinine Est Cr Clr Drug Dosing Est GFR ( Amer) Est GFR (Non-Af Amer) BUN/Creatinine Ratio Glucose POC Glucose Estimat Average Glucose Hemoglobin A1c Lactate 1.1 Calcium Magnesium Total Bilirubin AST ALT Alkaline Phosphatase Troponin I Total Protein Albumin Globulin Albumin/Globulin Ratio Procalcitonin 0.12 TSH Urine Color Yellow Urine Appearance Clear Urine pH 5.0 Ur Specific [place] 1.017 Urine Protein Negative Urine Glucose (UA) Negative Urine Ketones Negative Urine Blood Negative Urine Nitrite Negative Urine Bilirubin Negative Urine Urobilinogen Negative Ur Leukocyte Esterase Trace H Urine RBC 5-10 H Urine WBC 0-5 Ur Epithelial Cells 0-5 Urine Bacteria Negative 09/18/20 09/18/20 09/18/20 03:27 05:18 07:40 WBC RBC Hgb Hct MCV MCH MCHC RDW Std Deviation RDW Coeff of [place] Plt Count MPV Immature Gran % (Auto) Neut % (Auto) Lymph % (Auto) [place] % (Auto) Eos % (Auto) Baso % (Auto) Neut # (Auto) Lymph # (Auto) [place] # (Auto) Eos # (Auto) Baso # (Auto) Immature Gran # (Auto) APTT PTT Ratio Sodium Potassium Chloride Carbon Dioxide Anion Gap BUN Creatinine Est Cr Clr Drug Dosing Est GFR ( Amer) Est GFR (Non-Af Amer) BUN/Creatinine Ratio Glucose POC Glucose 215 H Estimat Average Glucose 157 Hemoglobin A1c 7.1 H Lactate Calcium Magnesium Total Bilirubin AST ALT Alkaline Phosphatase Troponin I 0.055 H* Total Protein Albumin Globulin Albumin/Globulin Ratio Procalcitonin TSH Urine Color Urine Appearance Urine pH Ur Specific [place] Urine Protein Urine Glucose (UA) Urine Ketones Urine Blood Urine Nitrite Urine Bilirubin Urine Urobilinogen Ur Leukocyte Esterase Urine RBC Urine WBC Ur Epithelial Cells Urine Bacteria 09/18/20 09/18/20 07:52 11:08 WBC RBC Hgb Hct MCV MCH MCHC RDW Std Deviation RDW Coeff of [place] Plt Count MPV Immature Gran % (Auto) Neut % (Auto) Lymph % (Auto) [place] % (Auto) Eos % (Auto) Baso % (Auto) Neut # (Auto) Lymph # (Auto) [place] # (Auto) Eos # (Auto) Baso # (Auto) Immature Gran # (Auto) APTT PTT Ratio Sodium Potassium Chloride Carbon Dioxide Anion Gap BUN Creatinine Est Cr Clr Drug Dosing Est GFR ( Amer) Est GFR (Non-Af Amer) BUN/Creatinine Ratio Glucose POC Glucose 195 H Estimat Average Glucose Hemoglobin A1c Lactate Calcium Magnesium Total Bilirubin AST ALT Alkaline Phosphatase Troponin I 0.064 H* Total Protein Albumin Globulin Albumin/Globulin Ratio Procalcitonin TSH Urine Color Urine Appearance Urine pH Ur Specific [place] Urine Protein Urine Glucose (UA) Urine Ketones Urine Blood Urine Nitrite Urine Bilirubin Urine Urobilinogen Ur Leukocyte Esterase Urine RBC Urine WBC Ur Epithelial Cells Urine Bacteria
--- NOTE | 2020-09-18 13:20 | Orthopedic Progress Note ---
Date of Service September 18, 2020 Assessment & Plan (1) Lumbar stenosis with neurogenic claudication: Admission and Anticipated Discharge Date Admission Date: September 15, 2020 This time I encouraged him to undergo physical therapy as tolerated. Awaiting final disposition regarding rehab or prison. Subjective Back pain controlled leg symptoms markedly improved. Physical Exam Physical Exam: Patient is in the chair at the bedside. Is comfortable. Is good strength testing. Results & Data ([facility]) Vital Signs (Past 12 Hours) Vital Signs Temp Pulse Pulse Pulse Resp BP Pulse Ox 09/18/20 11:13 36.9 C 58 L 19 138/75 97 09/18/20 07:47 36.6 C 80 18 134/58 L 98 09/18/20 05:55 147/80 H 09/18/20 03:30 57 L 138/69 09/18/20 02:50 123 H 09/18/20 02:36 123 H 09/18/20 02:28 36.7 C 111 H 20 165/93 H 95
[2020-09-18] MEDS: METOPROLOL TARTRATE 25 MG TAB PO SCH ×2 (13:54→20:11)
[2020-09-18] MEDS ORDERED: bisacodyL 10 MG SUPP PR PRN (16:08)
[2020-09-18] MEDS: hydrALAZINE HCL 25 MG TAB PO SCH ×2 (17:12→23:43)
[2020-09-18] MEDS: HYDROmorphone HCL 2 MG TAB PO PRN (20:30)
[2020-09-19] MEDS: POLYETHYLENE (MIRALAX) 17 GM PACK PO SCH ×2 (04:13→12:19)
[2020-09-19] MEDS: hydrALAZINE HCL 25 MG TAB PO SCH (06:28)
[2020-09-19] MEDS: INSULIN ASPART 100 UNITS/ML 3 ML PEN SC SCH ×4 (08:43→20:39)
[2020-09-19] MEDS: METOPROLOL TARTRATE 25 MG TAB PO SCH ×2 (08:44→15:40)
[2020-09-19] MEDS: ATORVASTATIN 40 MG TAB PO SCH (08:44)
[2020-09-19] MEDS: MAGNESIUM OXIDE 400 MG TAB PO SCH ×2 (08:44→20:39)
[2020-09-19] MEDS: PANTOprazole 40 MG TAB PO SCH ×2 (08:44→20:38)
[2020-09-19] MEDS: FINASTERIDE 5 MG TAB PO SCH (08:45)
[2020-09-19] MEDS: CYANOCOBALAMIN 500 MCG TABLET (VITAMIN B-12) PO SCH (08:45)
[2020-09-19] MEDS: amLODIPine BESYLATE 5 MG TAB PO SCH (08:45)
[2020-09-19] MEDS: ALFUZOSIN HCL 10 MG TAB PO SCH (08:45)
[2020-09-19] MEDS: INSULIN GLARGINE SOLOSTAR 100 UNITS/ML 3 ML PEN SC SCH (08:46)
[2020-09-19] MEDS: DOCUSATE SODIUM/SENNA 50/8.6MG TAB PO SCH ×2 (08:46→20:39)
[2020-09-19] MEDS: HYDROmorphone HCL 2 MG TAB PO PRN (08:56)
[2020-09-19] MEDS: ONDANSETRON INJ 2 MG/ML 2 ML VIAL IV PRN (09:05)
[2020-09-19] MEDS: traMADol HCL 50 MG TABLET PO PRN ×2 (10:33→23:42)
--- NOTE | 2020-09-19 11:57 | Cardiology Progress Note ---
Date of Service September 19, 2020 Assessment & Plan (1) PAT (paroxysmal atrial tachycardia): Patient appears clinically improved today. No further chest pain or discomfort. Telemetry still with short runs of atrial tachycardia nonsustained. Chronic atrial ventricular ectopy present. Plan: Discontinue hydralazine at this time. Continue amlodipine for hypertension with room to increase. Will resume metoprolol succinate 25 mg every afternoon this evening discontinue metoprolol tartrate after 2 PM dose today. Consider adding low-dose 12.5 mg metoprolol succinate in a.m. in addition to p.m. dosing Continue recovery plans postoperative (2) Nonrheumatic aortic (valve) stenosis: (3) HTN (hypertension): (4) CAD (coronary artery disease): (5) Lumbar stenosis with neurogenic claudication: Admission and Anticipated Discharge Date Admission Date: September 15, 2020 Subjective Patient seen and examined, chart, medications, telemetry reviewed. Patient appears much more comfortable today. No further nausea or emesis. Back pain coming under better control. Blood pressures trending downward on reduced dose of hydralazine. Review of Systems Review of Systems: All systems reviewed & are unremarkable except as noted in HPI & below Physical Exam Constitutional: WD/WN, vitals as above + cushingoid (Mild) Eyes: PERRL, conjunctivae normal, anicteric sclerae ENMT: external ear and nose normal, oropharynx normal Neck: trachea midline, no thyromegaly + thick neck Respiratory: normal respiratory effort, lungs clear to auscultation Cardiovascular: Rate/Rhythm: regular rate and regular rhythm Heart Sounds: normal S1 and + murmur (Harsh grade 3/6 systolic murmur, no diastolic murmur); + abnormal S2 (S2 is diminished) and no gallop Palpation: normal PMI Vessels: normal carotid upstroke and radial pulses present; no JVD and no carotid bruit Extremities: no edema Gastrointestinal (Abdomen): normal bowel sounds, soft, nontender, no hepatosplenomegaly Musculoskeletal: no cyanosis or clubbing, extremities motor strength 5/5 Skin: no rashes, warm and dry Neurologic: PERRL, EOMI, accommodation nl, no face palsy, no dysarthria Psychiatric: A+Ox3, euthymic affect Results & Data ([facility]) Vital Signs (Past 12 Hours) Vital Signs Temp Pulse Pulse Resp BP Pulse Ox 09/19/20 08:21 36.5 C 60 18 149/69 H 98 09/19/20 08:00 54 L 09/19/20 04:46 36.7 C 65 22 158/65 H 96 Laboratory Results Laboratory Results - last 24 hr 09/18/20 09/18/20 09/19/20 16:11 20:16 07:42 POC Glucose 201 H 290 H 135 H 09/19/20 11:44 POC Glucose 125 H
[2020-09-19] MEDS ORDERED: amLODIPine BESYLATE 5 MG TAB PO SCH (12:00)
--- NOTE | 2020-09-19 13:18 | Orthopedic Progress Note ---
Date of Service September 19, 2020 Assessment & Plan (1) History of lumbar laminectomy for spinal cord decompression: Admission and Anticipated Discharge Date Admission Date: September 15, 2020 At this time I will ask him to continue physical therapy as tolerated. I think would be an excellent candidate for a rehab facility. Hopefully he will be stable from a medical standpoint discharge in the next day or so. Subjective Patient is comfortable. He denies any leg pain. Back pain controlled Want Patient in chair at the bedside. He appears comfortable. Is good strength testing. Physical Exam Physical Exam: Patient is patient is comfortable denies any chest pain or leg symptoms. He has good strength testing. Results & Data ([facility]) Vital Signs (Past 12 Hours) Vital Signs Temp Pulse Pulse Resp BP Pulse Ox 09/19/20 12:23 36.8 C 88 18 125/69 98 09/19/20 08:21 36.5 C 60 18 149/69 H 98 09/19/20 08:00 54 L 09/19/20 04:46 36.7 C 65 22 158/65 H 96
[2020-09-19] MEDS ORDERED: POLYETHYLENE (MIRALAX) 17 GM PACK PO PRN (14:52)
[2020-09-19] MEDS ORDERED: predniSONE 5 MG TAB PO ONE (14:57)
--- NOTE | 2020-09-19 14:59 | Hospitalist Progress Note ---
Date of Service September 19, 2020 Assessment & Plan (1) Lumbar stenosis with neurogenic claudication: Status post decompression and fusion of lumbar spine on 09/[address] Guerrier. He did experience some postoperative bradycardia, however, this was not accompanied with hypotension or hemodynamic instability and resolved spontaneously. He continued to remain stable overnight on telemetry in sinus rhythm with some sinus bradycardia in the 50s. Pain appears to be well controlled with some expected postoperative pain present. Overnight he had a burst of what appeared to be intermittent symptomatic atrial fibrillation with RVR associated with CP, SOB, etc. Per cardiology, no anticoagulation should be given. He is rate controlled with adjustment of beta- vanessa. Again doing well overnight with some persistent bursts of PAT on telemetry overnight with subsequent beta-vanessa adjustment by cardiology. Doing well from a postoperative standpoint in general. Pain is well controlled. (2) Post-operative state: As above. (3) Aortic stenosis, moderate: Patient recently referred to outpatient valve clinic. Currently appears euvolemic. Cautious with any intravenous fluids. (4) Chronic steroid use: Stress dose hydrocortisone given since 09/14, preoperatively. Patient back on chronic prednisone 5 mg daily after several days of stress dose steroids and 1 day of Decadron per ortho spine. He did have some stress-induced hyperglycemia that is improved. (5) Steroid-induced hyperglycemia: Continue with insulin coverage while hospitalized (6) HTN (hypertension): Blood pressure slightly elevated secondary to postoperative pain and steroid use. Continue amlodipine 5 mg daily. Hydralazine was discontinued by cardiology. Continue solid pain management. (7) HLD (hyperlipidemia): Chronic, stable. Chronic, continue Lipitor 40 mg p.o. daily per home regimen. (8) GERD (gastroesophageal reflux disease): Chronic, continue Protonix 40 mg p.o. twice daily per home regimen. (9) CKD (chronic kidney disease), stage III: Chronic, appears to be at baseline. Avoid excessive NSAID therapy or other nephrotoxic substances. Renally dose medications as needed. (10) DVT prophylaxis: SCD/ambulation per orthopedics Full code Disposition-Per orthopedics. Discontinue telemetry at this time. Thank you for this consultation. We will continue to follow the patient throughout this hospital stay. Christa Martinez DO [facility] Hospitalist Admission and Anticipated Discharge Date Admission Date: September 15, 2020 Subjective 85-year-old man with lumbar spinal stenosis status post decompression and fusion of lumbar spine on 09/[address] Guerrier. Patient feels well Cardiology adjusted beta-vanessa Pain is well controlled Tolerating p.o. Review of Systems Review of Systems: All systems reviewed & are unremarkable except as noted in Subjective Physical Exam Physical Exam: CONSTITUTIONAL: WNWD, vitals as above, generally well- appearing EYES: normal conjunctivae, no scleral icterus ENT: external ear and nose normal, MMM RESPIRATORY: clear to auscultation throughout, no crackles, rales or wheezes, normal respiratory effort CARDIOVASCULAR: regular rate and rhythm, harsh 3/6 VIRAL heard throughout precordium referred to neck and shoulder, no JVD, no peripheral edema GASTROINTESTINAL: soft, nontender, nondistended. BACK: surgical dressing in place, SOO drain has been removed MUSCULOSKELETAL: strength 5/5 throughout lower extremities bilaterally, head is normocephalic and atraumatic SKIN: warm and dry NEUROLOGIC: ] no facial palsy, no dysarthria. CN 2-12 grossly intact, no sensory deficit, normal cognition, normal speech, no tremor PSYCHIATRIC: alert cooperative and oriented to person, place and time. Results & Data Results & Data ([facility]) Vital Signs (Past 12 Hours) Vital Signs Temp Pulse Pulse Resp BP Pulse Ox 09/19/20 12:23 36.8 C 88 18 125/69 98 09/19/20 08:21 36.5 C 60 18 149/69 H 98 09/19/20 08:00 54 L 09/19/20 04:46 36.7 C 65 22 158/65 H 96 Medications Administered Current Inpatient Medications Acetaminophen (Acetaminophen 325 Mg Tab) 650 mg PO Q6H PRN PRN Reason: Pain & Pre PT Stop: 10/13/20 14:33 Al Hydrox/Mg Hydrox/Simethicone (Aluminum/Magnesium Susp 30 Ml Udc) 30 ml PO Q6H PRN PRN Reason: Dyspepsia Stop: 10/16/20 18:24 Albuterol (Albuterol 0.083% Nebu Soln 3 Ml Vial) 2.5 mg INH UD PRN PRN Reason: Shortness Of Breath Stop: 10/13/20 17:59 Alfuzosin HCl (Alfuzosin Hcl 10 Mg Tab) 10 mg PO DAILY [facility]SAIN Stop: 10/14/20 08:59 Last Admin: 09/19/20 08:45 Dose: 10 mg Documented by: Amlodipine Besylate (Amlodipine Besylate 5 Mg Tab) 5 mg PO DAILY [facility]SAIN Stop: 10/14/20 08:59 Last Admin: 09/19/20 08:45 Dose: 5 mg Documented by: Atorvastatin Calcium (Atorvastatin 40 Mg Tab) 40 mg PO DAILY [facility]USSAIN Stop: 10/14/20 08:59 Last Admin: 09/19/20 08:44 Dose: 40 mg Documented by: Bisacodyl (Bisacodyl 10 Mg Supp) 10 mg PA DAILY PRN PRN Reason: Constipation Stop: 10/18/20 16:07 Cyanocobalamin (Cyanocobalamin 500 Mcg Tablet (Vitamin B-12)) 1,000 mcg PO DAILY HUSSAIN Stop: 10/14/20 08:59 Last Admin: 09/19/20 08:45 Dose: 1,000 mcg Documented by: Dextrose (Dextrose 50% 50 Ml Syringe) 25 - 50 ml IV UD PRN; Protocol PRN Reason: Hypoglycemia Protocol Stop: 10/18/20 02:54 Diphenhydramine HCl (Diphenhydramine Capsule 25 Mg Cap) 25 mg PO Q6H PRN PRN Reason: Allergic Rhinitis/Insomnia Stop: 10/16/20 18:24 Famotidine (Famotidine 20 Mg Tab) 20 mg PO Q12H PRN PRN Reason: Dyspepsia Stop: 10/16/20 18:24 Finasteride (Finasteride 5 Mg Tab) 5 mg PO DAILY HUSSAIN Stop: 10/14/20 08:59 Last Admin: 09/19/20 08:45 Dose: 5 mg Documented by: Glucagon (Glucagon For Inj 1 Mg Vial) 1 mg SQ UD PRN; Protocol PRN Reason: Hypoglycemia Protocol Stop: 10/18/20 02:54 Glucose (Glucose 10 Tabs/Tube) 4 - 8 tabs PO UD PRN; Protocol PRN Reason: Hypoglycemia Protocol Stop: 10/18/20 02:54 Glucose (Glucose 40% Gel 15 Gm Tube) 15 - 30 gm PO UD PRN; Protocol PRN Reason: Hypoglycemia Protocol Stop: 10/18/20 02:54 Hydromorphone HCl (Hydromorphone Hcl 2 Mg Tab) 2 mg PO Q4H PRN PRN Reason: Pain & Pre PT Stop: 09/27/20 14:33 Last Admin: 09/19/20 08:56 Dose: 2 mg Documented by: Hydroxyzine HCl (Hydroxyzine Hcl 25 Mg Tab) 25 mg PO Q8H PRN PRN Reason: Anxiety Stop: 10/16/20 18:24 Influenza Virus Vaccine Quadrival (Do Not Administer Flu Vaccine) 1 ea N/A PRN PRN PRN Reason: Notification Stop: 10/16/20 18:24 Insulin Aspart (Insulin Aspart 100 Units/Ml 3 Ml Pen) 0 units SC ACHS HUSSAIN Stop: 10/18/20 02:54 Last Admin: 09/19/20 12:18 Dose: 3 units Documented by: Insulin Glargine (Insulin Glargine Solostar 100 Units/Ml 3 Ml Pen) 5 units SC DAILY REPLACED BY [facility] Stop: 10/19/20 08:59 Last Admin: 09/19/20 08:46 Dose: 5 units Documented by: Lorazepam (Lorazepam 0.5 Mg Tab) 0.5 mg PO Q8H PRN PRN Reason: sedation/anxiety Stop: 10/16/20 18:24 Magnesium Hydroxide (Magnesium Hydroxide Susp 30 Ml Udc) 30 ml PO Q24H PRN PRN Reason: Constipation Stop: 10/16/20 18:24 Magnesium Oxide (Magnesium Oxide 400 Mg Tab) 400 mg PO BID REPLACED BY [facility] Stop: 10/14/20 20:59 Last Admin: 09/19/20 08:44 Dose: 400 mg Documented by: Metoclopramide HCl (Metoclopramide Hcl Inj 5 Mg/Ml 2 Ml Vial) 10 mg IV Q6H PRN PRN Reason: Nausea &/or Vomiting Stop: 10/13/20 14:33 Metoprolol Succinate (Metoprolol Succ 25mg Ext Rel Tab) 25 mg PO QPM REPLACED BY [facility] Stop: 10/19/20 20:59 Metoprolol Tartrate (Metoprolol Tartrate 25 Mg Tab) 12.5 mg PO TID REPLACED BY [facility] Stop: 10/18/20 13:59 Last Admin: 09/19/20 08:44 Dose: 12.5 mg Documented by: Miscellaneous (Carbohydrates For Hypoglycemia ) 15 - 30 gm PO UD PRN PRN Reason: Hypoglycemia Protocol Stop: 10/18/20 02:54 Naloxone HCl (Naloxone Hcl 0.4 Mg/1 Ml Vial/Carp) 0.1 mg IV Q5M PRN PRN Reason: Oversedation/respiratory dep Stop: 10/16/20 18:24 Nortriptyline HCl (Nortriptyline Hcl 25 Mg Cap) 25 mg PO BID PRN PRN Reason: Pain Stop: 10/14/20 09:29 Ondansetron HCl (Ondansetron Inj 2 Mg/Ml 2 Ml Vial) 4 mg IV Q6H PRN PRN Reason: Nausea &/or Vomiting Stop: 10/13/20 14:33 Last Admin: 09/19/20 09:05 Dose: 4 mg Documented by: Pantoprazole Sodium (Pantoprazole 40 Mg Tab) 40 mg PO BID [facility]USSAIN Stop: 10/13/20 20:59 Last Admin: 09/19/20 08:44 Dose: 40 mg Documented by: Pneumococcal Polyvalent Vaccine (Do Not Administer Pneumococcal Vaccine) 1 ea N/A PRN PRN PRN Reason: Notification Stop: 10/16/20 18:24 Polyethylene Glycol (Polyethylene (Miralax) 17 Gm Pack) 17 gm PO Q6 PRN PRN Reason: constipation Stop: 10/17/20 17:59 Prednisone (Prednisone 5 Mg Tab) 5 mg PO NOW ONE Stop: 09/19/20 14:58 Prednisone (Prednisone 5 Mg Tab) 5 mg PO DAILY HUSSAIN Stop: 10/20/20 08:59 Senna/Docusate Sodium (Docusate Sodium/Senna 50/8.6mg Tab) 2 tab PO BID [facility]IN Stop: 10/18/20 08:59 Last Admin: 09/19/20 08:46 Dose: Not Given Documented by: Sodium Biphosphate/Sodium Phosphate (Sod Phosphate/Sod Biphosphate Enema 132 Ml Btl) 132 ml PA ONE PRN PRN Reason: Constipation Stop: 10/16/20 18:24 Tramadol HCl (Tramadol Hcl 50 Mg Tablet) 50 mg PO Q4H PRN PRN Reason: MODERATE Pain (4,5,6) & Pre PT Stop: 10/13/20 14:33 Last Admin: 09/19/20 10:33 Dose: 50 mg Documented by:
[2020-09-19] MEDS: METOPROLOL SUCC 25MG EXT REL TAB PO SCH (20:39)
[2020-09-20] MEDS: traMADol HCL 50 MG TABLET PO PRN (05:37)
[2020-09-20] MEDS: ATORVASTATIN 40 MG TAB PO SCH (08:12)
[2020-09-20] MEDS: amLODIPine BESYLATE 5 MG TAB PO SCH (08:12)
[2020-09-20] MEDS: CYANOCOBALAMIN 500 MCG TABLET (VITAMIN B-12) PO SCH (08:12)
[2020-09-20] MEDS: FINASTERIDE 5 MG TAB PO SCH (08:12)
[2020-09-20] MEDS: PANTOprazole 40 MG TAB PO SCH ×2 (08:13→20:38)
[2020-09-20] MEDS: predniSONE 5 MG TAB PO SCH (08:13)
[2020-09-20] MEDS: MAGNESIUM OXIDE 400 MG TAB PO SCH ×2 (08:13→20:38)
[2020-09-20] MEDS: DOCUSATE SODIUM/SENNA 50/8.6MG TAB PO SCH ×2 (08:13→20:40)
[2020-09-20] MEDS: ALFUZOSIN HCL 10 MG TAB PO SCH (08:13)
[2020-09-20] MEDS: INSULIN ASPART 100 UNITS/ML 3 ML PEN SC SCH ×4 (08:56→21:03)
[2020-09-20] MEDS: INSULIN GLARGINE SOLOSTAR 100 UNITS/ML 3 ML PEN SC SCH (09:00)
--- NOTE | 2020-09-20 11:44 | Orthopedic Progress Note ---
Date of Service September 20, 2020 Assessment & Plan (1) Lumbar stenosis with neurogenic claudication: Admission and Anticipated Discharge Date Admission Date: September 15, 2020 This time is improving appropriately. We had a lengthy discussion today regarding disposition. He is comfortable going home with home health his family will be able to manage him. We will plan for discharge home Tuesday. Subjective Patient's back pain and leg symptoms are markedly improved. He is quite comfortable. Physical Exam Physical Exam: On exam he is in the chair at the bedside has good strength testing.
[2020-09-20] MEDS: ONDANSETRON INJ 2 MG/ML 2 ML VIAL IV PRN (13:45)
--- NOTE | 2020-09-20 15:50 | Hospitalist Progress Note ---
Date of Service September 20, 2020 Assessment & Plan (1) Lumbar stenosis with neurogenic claudication: Status post decompression and fusion of lumbar spine on 09/[address] Guerrier. He did experience some postoperative bradycardia, however, this was not accompanied with hypotension or hemodynamic instability and resolved spontaneously. He continued to remain stable overnight on telemetry in sinus rhythm with some sinus bradycardia in the 50s. Pain appears to be well controlled with some expected postoperative pain present. Overnight he had a burst of what appeared to be intermittent symptomatic atrial fibrillation with RVR associated with CP, SOB, etc. Per cardiology, no anticoagulation should be given. He is rate controlled with adjustment of beta- vanessa. The next night with some persistent bursts of PAT on telemetry overnight with subsequent beta-vanessa adjustment by cardiology. Doing well from a postoperative standpoint in general. Pain is well controlled. Ready for rehab but patient states that he is going home. Dispo per ortho. WOULD CONTINUE ALL CURRENTLY ORDERED CARDIAC MEDICATIONS AT DISCHARGE TO REFLECT CHANGES FROM CARDIOLOGY (2) Post-operative state: As above. (3) Aortic stenosis, moderate: Patient recently referred to outpatient valve clinic. Currently appears euvolemic. Cautious with any intravenous fluids. (4) Chronic steroid use: Stress dose hydrocortisone given since 09/14, preoperatively. Patient back on chronic prednisone 5 mg daily after several days of stress dose steroids and 1 day of Decadron per ortho spine. He did have some steroid-induced hyperglycemia that is improved. (5) Steroid-induced hyperglycemia: Continue with insulin coverage while hospitalized (6) HTN (hypertension): Blood pressure slightly elevated secondary to postoperative pain and steroid use. Continue amlodipine 5 mg daily. Hydralazine was discontinued by cardiology. Continue solid pain management. (7) HLD (hyperlipidemia): Chronic, stable. Chronic, continue Lipitor 40 mg p.o. daily per home regimen. (8) GERD (gastroesophageal reflux disease): Chronic, continue Protonix 40 mg p.o. twice daily per home regimen. (9) CKD (chronic kidney disease), stage III: Chronic, appears to be at baseline. Avoid excessive NSAID therapy or other nephrotoxic substances. Renally dose medications as needed. (10) DVT prophylaxis: SCD/ambulation per orthopedics Full code Disposition-Per orthopedics. Thank you for this consultation. We will continue to follow the patient throughout this hospital stay. Christ[facility] and Anticipated Discharge Date Admission Date: September 15, 2020 Subjective 85-year-old man with lumbar spinal stenosis status post decompression and fusion of lumbar spine on 09/[address] Guerrier. Patient feels well Pain is well controlled Tolerating p.o. Akbar in place and was removed today. Review of Systems Review of Systems: All systems reviewed & are unremarkable except as noted in Subjective Physical Exam Physical Exam: CONSTITUTIONAL: WNWD, vitals as above, generally well- appearing EYES: normal conjunctivae, no scleral icterus ENT: external ear and nose normal, MMM RESPIRATORY: clear to auscultation throughout, no crackles, rales or wheezes, normal respiratory effort CARDIOVASCULAR: regular rate and rhythm, harsh 3/6 VIRAL heard throughout precordium referred to neck and shoulder, no JVD, no peripheral edema GASTROINTESTINAL: soft, nontender, nondistended. BACK: surgical dressing in place, SOO drain has been removed MUSCULOSKELETAL: strength 5/5 throughout lower extremities bilaterally, head is normocephalic and atraumatic SKIN: warm and dry NEUROLOGIC: no facial palsy, no dysarthria. CN 2-12 grossly intact, no sensory deficit, normal cognition, normal speech, no tremor PSYCHIATRIC: alert cooperative and oriented to person, place and time. Results & Data Results & Data ([facility]) Vital Signs (Past 12 Hours) Vital Signs Temp Pulse Resp BP Pulse Ox 09/20/20 15:44 36.5 C 58 L 16 154/62 H 95 09/20/20 08:00 36.5 C 58 L 16 154/62 H 95 Medications Administered Current Inpatient Medications Acetaminophen (Acetaminophen 325 Mg Tab) 650 mg PO Q6H PRN PRN Reason: Pain & Pre PT Stop: 10/13/20 14:33 Al Hydrox/Mg Hydrox/Simethicone (Aluminum/Magnesium Susp 30 Ml Udc) 30 ml PO Q6H PRN PRN Reason: Dyspepsia Stop: 10/16/20 18:24 Albuterol (Albuterol 0.083% Nebu Soln 3 Ml Vial) 2.5 mg INH UD PRN PRN Reason: Shortness Of Breath Stop: 10/13/20 17:59 Alfuzosin HCl (Alfuzosin Hcl 10 Mg Tab) 10 mg PO DAILY [facility]USSAIN Stop: 10/14/20 08:59 Last Admin: 09/20/20 08:13 Dose: 10 mg Documented by: Amlodipine Besylate (Amlodipine Besylate 5 Mg Tab) 5 mg PO DAILY HUSSAIN Stop: 10/14/20 08:59 Last Admin: 09/20/20 08:12 Dose: 5 mg Documented by: Atorvastatin Calcium (Atorvastatin 40 Mg Tab) 40 mg PO DAILY HUSSAIN Stop: 10/14/20 08:59 Last Admin: 09/20/20 08:12 Dose: 40 mg Documented by: Bisacodyl (Bisacodyl 10 Mg Supp) 10 mg [place] DAILY PRN PRN Reason: Constipation Stop: 10/18/20 16:07 Cyanocobalamin (Cyanocobalamin 500 Mcg Tablet (Vitamin B-12)) 1,000 mcg PO DAILY HUSSAIN Stop: 10/14/20 08:59 Last Admin: 09/20/20 08:12 Dose: 1,000 mcg Documented by: Dextrose (Dextrose 50% 50 Ml Syringe) 25 - 50 ml IV UD PRN; Protocol PRN Reason: Hypoglycemia Protocol Stop: 10/18/20 02:54 Diphenhydramine HCl (Diphenhydramine Capsule 25 Mg Cap) 25 mg PO Q6H PRN PRN Reason: Allergic Rhinitis/Insomnia Stop: 10/16/20 18:24 Famotidine (Famotidine 20 Mg Tab) 20 mg PO Q12H PRN PRN Reason: Dyspepsia Stop: 10/16/20 18:24 Finasteride (Finasteride 5 Mg Tab) 5 mg PO DAILY [facility]USSAIN Stop: 10/14/20 08:59 Last Admin: 09/20/20 08:12 Dose: 5 mg Documented by: Glucagon (Glucagon For Inj 1 Mg Vial) 1 mg SQ UD PRN; Protocol PRN Reason: Hypoglycemia Protocol Stop: 10/18/20 02:54 Glucose (Glucose 10 Tabs/Tube) 4 - 8 tabs PO UD PRN; Protocol PRN Reason: Hypoglycemia Protocol Stop: 10/18/20 02:54 Glucose (Glucose 40% Gel 15 Gm Tube) 15 - 30 gm PO UD PRN; Protocol PRN Reason: Hypoglycemia Protocol Stop: 10/18/20 02:54 Hydromorphone HCl (Hydromorphone Hcl 2 Mg Tab) 2 mg PO Q4H PRN PRN Reason: Pain & Pre PT Stop: 09/27/20 14:33 Last Admin: 09/19/20 08:56 Dose: 2 mg Documented by: Hydroxyzine HCl (Hydroxyzine Hcl 25 Mg Tab) 25 mg PO Q8H PRN PRN Reason: Anxiety Stop: 10/16/20 18:24 Influenza Virus Vaccine Quadrival (Do Not Administer Flu Vaccine) 1 ea N/A PRN PRN PRN Reason: Notification Stop: 10/16/20 18:24 Insulin Aspart (Insulin Aspart 100 Units/Ml 3 Ml Pen) 0 units SC ACHS HUSSAIN Stop: 10/18/20 02:54 Last Admin: 09/20/20 13:09 Dose: 4 units Documented by: Insulin Glargine (Insulin Glargine Solostar 100 Units/Ml 3 Ml Pen) 5 units SC DAILY HUSSAIN Stop: 10/19/20 08:59 Last Admin: 09/20/20 09:00 Dose: 5 units Documented by: Magnesium Hydroxide (Magnesium Hydroxide Susp 30 Ml Udc) 30 ml PO Q24H PRN PRN Reason: Constipation Stop: 10/16/20 18:24 Magnesium Oxide (Magnesium Oxide 400 Mg Tab) 400 mg PO BID HUSSAIN Stop: 10/14/20 20:59 Last Admin: 09/20/20 08:13 Dose: 400 mg Documented by: Metoprolol Succinate (Metoprolol Succ 25mg Ext Rel Tab) 25 mg PO QPM [facility]USSAIN Stop: 10/19/20 20:59 Last Admin: 09/19/20 20:39 Dose: 25 mg Documented by: Metoprolol Tartrate (Metoprolol Tartrate 25 Mg Tab) 12.5 mg PO TID HUSSAIN Stop: 10/18/20 13:59 Last Admin: 09/19/20 15:40 Dose: 12.5 mg Documented by: Miscellaneous (Carbohydrates For Hypoglycemia ) 15 - 30 gm PO UD PRN PRN Reason: Hypoglycemia Protocol Stop: 10/18/20 02:54 Naloxone HCl (Naloxone Hcl 0.4 Mg/1 Ml Vial/Carp) 0.1 mg IV Q5M PRN PRN Reason: Oversedation/respiratory dep Stop: 10/16/20 18:24 Nortriptyline HCl (Nortriptyline Hcl 25 Mg Cap) 25 mg PO BID PRN PRN Reason: Pain Stop: 10/14/20 09:29 Ondansetron HCl (Ondansetron Inj 2 Mg/Ml 2 Ml Vial) 4 mg IV Q6H PRN PRN Reason: Nausea &/or Vomiting Stop: 10/13/20 14:33 Last Admin: 09/20/20 13:45 Dose: 4 mg Documented by: Pantoprazole Sodium (Pantoprazole 40 Mg Tab) 40 mg PO BID [facility] Stop: 10/13/20 20:59 Last Admin: 09/20/20 08:13 Dose: 40 mg Documented by: Pneumococcal Polyvalent Vaccine (Do Not Administer Pneumococcal Vaccine) 1 ea N/A PRN PRN PRN Reason: Notification Stop: 10/16/20 18:24 Polyethylene Glycol (Polyethylene (Miralax) 17 Gm Pack) 17 gm PO Q6 PRN PRN Reason: constipation Stop: 10/17/20 17:59 Prednisone (Prednisone 5 Mg Tab) 5 mg PO DAILY [facility] Stop: 10/20/20 08:59 Last Admin: 09/20/20 08:13 Dose: 5 mg Documented by: Senna/Docusate Sodium (Docusate Sodium/Senna 50/8.6mg Tab) 2 tab PO BID [facility] Stop: 10/18/20 08:59 Last Admin: 09/20/20 08:13 Dose: 2 tab Documented by: Sodium Biphosphate/Sodium Phosphate (Sod Phosphate/Sod Biphosphate Enema 132 Ml Btl) 132 ml MI ONE PRN PRN Reason: Constipation Stop: 10/16/20 18:24 Tramadol HCl (Tramadol Hcl 50 Mg Tablet) 50 mg PO Q4H PRN PRN Reason: MODERATE Pain (4,5,6) & Pre PT Stop: 10/13/20 14:33 Last Admin: 09/20/20 05:37 Dose: 50 mg Documented by:
[2020-09-20] MEDS: METOPROLOL SUCC 25MG EXT REL TAB PO SCH (20:38)
[2020-09-20] MEDS: ACETAMINOPHEN 325 MG TAB PO PRN (21:39)
--- NOTE | 2020-09-21 08:31 | Orthopedic Progress Note ---
Date of Service September 21, 2020 Assessment & Plan (1) Lumbar stenosis with neurogenic claudication: Patient is doing well postop day #6. At this point he is deemed safe for home discharge. His discharge instructions were reviewed in detail. He needs to change his dressing once daily until there is no drainage once there is no drainage he may shower. We will see him in the office approximately 2 weeks or sooner if he develops any increased pain fevers or chills. Admission and Anticipated Discharge Date Admission Date: September 15, 2020 Subjective Patient was seen bedside in room 351. Today states that he is doing well his pain is well controlled. Is been ambulating on his own. He has no complaints. He denies any other numbness, tingling, or paresthesias. Physical Exam Physical Exam: On exam he is alert and oriented. His abdomen soft nontender his calves are supple and nontender. His dressing is clean dry and intact. Results & Data ([facility]) Vital Signs (Past 12 Hours) Vital Signs Temp Pulse Resp BP Pulse Ox 09/21/20 06:25 37.2 C 68 16 152/77 H 99 09/20/20 22:09 36.8 C 72 16 158/63 H 93
[2020-09-21] MEDS: DOCUSATE SODIUM/SENNA 50/8.6MG TAB PO SCH (08:41)
[2020-09-21] MEDS: ACETAMINOPHEN 325 MG TAB PO PRN (08:41)
[2020-09-21] MEDS: predniSONE 5 MG TAB PO SCH (08:42)
[2020-09-21] MEDS: ALFUZOSIN HCL 10 MG TAB PO SCH (08:42)
[2020-09-21] MEDS: MAGNESIUM OXIDE 400 MG TAB PO SCH (08:42)
[2020-09-21] MEDS: amLODIPine BESYLATE 5 MG TAB PO SCH (08:42)
[2020-09-21] MEDS: FINASTERIDE 5 MG TAB PO SCH (08:42)
[2020-09-21] MEDS: ATORVASTATIN 40 MG TAB PO SCH (08:42)
[2020-09-21] MEDS: CYANOCOBALAMIN 500 MCG TABLET (VITAMIN B-12) PO SCH (08:42)
[2020-09-21] MEDS: PANTOprazole 40 MG TAB PO SCH (08:43)
[2020-09-21] MEDS: INSULIN ASPART 100 UNITS/ML 3 ML PEN SC SCH (08:48)
[2020-09-21] MEDS: INSULIN GLARGINE SOLOSTAR 100 UNITS/ML 3 ML PEN SC SCH (08:50)
[2020-09-21] MEDS: HYDROmorphone HCL 2 MG TAB PO PRN (09:39)
--- NOTE | 2020-09-23 10:21 | Discharge Summary ---
Date of Service September 23, 2020 Admission HPI Per Admitting Provider This is an 85-year-old male well-known to me that is been struggling over the past several months. I been working him up in my office and recently obtained an MRI lumbar spine. It demonstrates severe advanced spinal stenosis T12-L1 L1- L2. He has continued decline with severe pain and was taken to emergency room by his family. He describes pain across the thoracolumbar lumbar junction radiating mostly into the right leg. It does extend to the foot. Any coughing sneezing or motion reproduces his symptoms. He is essentially wheelchair-bound. Admission Exam (Per Admitting) Constitutional WD/WN, vitals as above Eyes normal visual gutierrez by confrontation ENMT external ear and nose normal, oropharynx normal Neck normal visual inspection Respiratory normal respiratory effort Cardiovascular Extremities: normal capillary refill Gastrointestinal (Abdomen) Inspection/Auscultation: abdomen normal to inspection Musculoskeletal Spine: + limited thoraco-lumbar ROM and + pain with thoraco-lumbar ROM Extremities: extremities normal to inspection Skin no rashes, warm and dry Neurologic normal touch/pain/proprioception, moves all extremities and + focal motor deficit Psychiatric A+Ox3, euthymic affect Discharge Data Consultations 09/13/20 14:39 Consult Anesthesiology Routine 09/13/20 14:44 Consult Internal Medicine Routine 09/13/20 17:54 Consult Cardiology Routine 09/16/20 18:25 Consult Case Management - Discharge Planning Routine 09/20/20 16:05 Consult Case Management - Discharge Planning Routine Procedures Performed Operation Date: 09/16/20 13:00 Actual Procedures p Decompression and Fusion T12-L1, L1-L2(Not Applicable) - Francisco Guerrier, DO Diabetes Follow Up Diabetes Follow Up: Diabetes Follow-up Needed for Newly Diagnosed Diabetes Hospital Course (1) Intractable low back pain: Pt underwent Posterior thoracolumbar decompression and fusion on 09/16/[address] Guerrier. POD #2 he went into PATs. Cardiology was consulted. This resolved with IV Metoprolol. He has significant hx of aortic stenosis. He proceeded with physical therapy during his hospital stay. He subsequently went home with family on POD #6. No other issues throughout hospital stay. Discharge Instructions ACTIVITY RECOMMENDATIONS: SELF CARE INSTRUCTIONS AFTER THORACIC/LUMBAR FUSIONS 1. You may walk to your tolerance. It is good exercise for your legs and back. Expect some back and intermittent leg aches and pains. 2. You may perform "counter-top" level activities (make a sandwich, nica with a project, etc.). 3. No bending or lifting of more than 10 pounds or back twisting of any nature (roll like a log when turning in bed). 4. You may ride in a car for 20-30 minutes at a time. No driving until after your first visit with your doctor. 5. Frequent changes of position and restricting sitting to 30 minutes at a time will help limit the amount of back spasms and stiffness you may experience. 6. You may discontinue the use of ambulatory aids (cane, crutches, etc.) once your strength and confidence allow. 7. You may prototype engineer the shower and let water strike your incision when you arrive home at least once daily. Do not take a tub bath, sit in a hot tub or go into a swimming pool until after your first recheck in the office. SPECIAL CARE INSTRUCTIONS: VERY IMPORTANT TO READ AND REVIEW A. Your surgical incision has been closed with a cosmetic suture under the skin that will dissolve in about 6 weeks. In 14 days, you can use a pair of clean scissors and cut the suture that is left outside of the skin at the ends of your incision. 1. The small skin tapes can be removed 7 days after surgery if they have not fallen off by that point. 2. You may keep the wound open to air as much as possible to promote healing after post-op day number 5 unless told otherwise by your doctor. 3. If you think the wound looks like it is becoming infected (redness or worsening drainage) and/or you are experiencing fever, chill or worsening back pain and muscle spasms, contact the office so that we may evaluate you as soon as possible. B. Complications are uncommon, but please contact us if you have any signs or symptoms of: 1. wound infection (fever higher than 102.5 degrees F, redness, separation of wound, drainage, or increasing pain from the incision) 2. blood clots in legs (pain, swelling, redness and warmth in legs) 3. urinary tract infection (fever higher than 102.5 degrees F, burning upon urination or increased frequency of urination) 4. nerve problems (inability to walk on your toes or heels, numbness, loss of bowel or bladder control) 5. any other symptoms that concern you C. Please call the office at if you have any concerns or questions about your operation or recovery. D. No smoking! Smoking drastically decreases the chance of a solid fusion. E. Do not take any anti-inflammatory medications (Indocin, Advil, Motrin, Aspirin, Naprosyn, etc.) as these may inhibit the chance of a solid fusion. Tylenol is okay to take for pain. MANAGING PAIN AFTER SPINAL SURGERY 1. Narcotic medication is intended for short-term use and will be provided for surgical pain. Surgical pain usually lasts for a period of 4-6 weeks. Narcotic medication includes Percocet, Vicodin, Darvocet, Tylenol #3 or Lortab. 2. Longer-term pain is more appropriately treated with non-narcotic medication such as Tylenol ES. 3. Muscle spasm is not appropriately treated with narcotics. Muscle relaxers such as Soma, Flexeril or Skelaxin can be used along with Tylenol ES. 4. Remember that we all live with some "aches and pains". This is not unusual or uncommon after an injury or as we get older. a. Back pain is expected and may include muscle spasms for 4 to 6 weeks after surgery. The pain should gradually improve. If the pain worsens for no apparent reason, please contact the office. b. Intermittent leg pain may also be experienced and should not be concerned about unless it worsens for no apparent reason. If so, please contact the office. 5. We will provide appropriate medication within the normal guidelines of their prescribed use. We will also be very cautious and aware of potential abuse and extended duration of patients' medication needs. a. Pain medications are for your comfort and to assist with sleep and rest so that the tissue can heal. They are not provided in order to return to normal activity and should not be used through the day. To do so or worsening pain at night can result from ongoing tissue damage and development of tolerance to the prescribed medicine. 6. Please allow 2-3 days to process refills. Prescriptions will not be mailed but must be picked up at the office. FOLLOW UP VISIT: Keep your scheduled follow-up appointment. Any questions, please call the office at . Supervising Physician Co-Signing Physician Notes Dr. Francisco Guerrier
== END 2020-09-21 12:09 | disposition home health service (06) | DRG 455 ==
LOC: ED 13:55 → 3W 13:55 → 2S 09-16 20:52 → 3W 09-19 16:01

== ENCOUNTER 2021-01-21 09:51 | Observation (INO) ==
[2021-01-21] MEDS ORDERED: VANCOMYCIN HCL 1000MG/20ML VIAL ONE (11:16)
[2021-01-21] MEDS ORDERED: BUPIVACAINE 0.25% 30 ML VIAL ONE (11:16)
[2021-01-21] MEDS ORDERED: WATER, STERILE FOR INJ 10 ML VIAL ONE (11:16)
[2021-01-21] MEDS ORDERED: LIDOCAINE 1% LOCAL 20 ML VIAL ONE (11:16)
--- NOTE | 2021-01-21 12:01 | Pre Anesthesia Assessment ---
Date of Service January 21, 2021 Pre Sedation Assessment Vital Signs Temp Pulse Resp BP Pulse Ox 01/21/21 10:26 37 C 49 L 20 180/108 H 96 Cardiovascular + bradycardic Respiratory normal respiratory effort, lungs clear to auscultation Pre-Sedation Airway Assessment Smoking Status: Former smoker Hx Sleep Apnea: No Short, Thick Neck: No Thyromental Distance: > or= 3.5 Finger Breadths Oral Cavity: + WNL Mallampati Class: II ASA: ASA3 NPO Status Date of Last Intake of Fluids: 01/21/21 Time of Last Intake of Fluids: 07:00 Date of Last Intake of Solid Food: 01/20/21 Time of Last Intake of Solid Foods: 18:00 Procedure Planning Contraindications for Sedation: none Current Medications Reviewed: Yes Notes The planned sedation has been discussed with the patient. Informed Consent was obtained. I have identified the patient, determined the appropriateness of sedation and have assessed the patient immediately prior to the procedure. All medicine(s) and interventions are by my order.
--- NOTE | 2021-01-21 12:05 | History & Physical Bridge Note ---
Date of Service January 21, 2021 History & Physical Bridge Note I have examined the patient, reviewed the History & Physical and in the interval since the performance of the History & Physical I have noted the following changes of clinical significance: pt with SSS, and PVCs for a dial chamber ppm. discussed the procedure
[2021-01-21] MEDS ORDERED: MIDAZOLAM HCL 5 MG/ML 1 ML VIAL ONE (12:32)
[2021-01-21] MEDS ORDERED: fentaNYL citrate 100 MCG/2 ML VIAL ONE (12:32)
--- NOTE | 2021-01-21 14:39 | Post Anesthesia Assessment ---
Date of Service January 21, 2021 Post Sedation Assessment Vital Signs Temp Pulse Resp BP Pulse Ox 01/21/21 10:26 37 C 49 L 20 180/108 H 96 Recovery Score Activity: Moves 4 extremities Respiration: Deep Breath/Cough Circulation: +/-20% PreAnes Value Consciousness: Fully Awake Oxygen Saturation: > 92% On Room Air Discharge Sedation Level of Care: Fast Track Phase II Post Sedation Plan On clinical assessment, the patient appears to have tolerated the sedation without complications. Patient is recovering as anticipated. Patient will continue to be monitored by nursing and may be discharged when sedation discharge criteria are met per below protocol. Upon Completions of procedure up to 15 minutes continue every 5 minute vital signs and the P.A.R. score; then discharge to a Phase I or Fast Track to Phase II per the following guidelines: * Discharge Patient to appropriate Phase II area if PAR is 8 or greater or return to pre- procedure baseline. The post - procedure orders will be as directed. * If PAR score is less than 8 or not return to pre-procedure baseline then patient will follow Phase I monitoring till PAR is reached for Phase II. The Phase I may be done in procedure room or may call to secure a Phase I area. * If naloxone or flumazenil are used for reversal, hold in Phase I for continued monitoring from when last reversal dose was given for a minimum of 60 minutes or longer pending the nurse and/or physician discretion of patient condition before discharge to Phase II. Please call the Sedation Physician to re-evaluate and complete post-note for discharge to Phase II area. Do NOT discharge from procedure sedation or Phase 1 until post- sedation evaluation note is complete by procedure /sedation MD Sedation Discharge Instructions to be given to the patient at discharge to home.
--- NOTE | 2021-01-21 14:40 | Operative Report ---
Post Operative Report Pre & Post Diagnosis SSS, PVC Operation Date: 01/21/21 11:00 <No data on this case meets the specified criteria> I identified the patient and participated in the time-out.: Yes Procedure Operation Date: 01/21/21 11:00 Actual Procedures p Pacer with A/V Leads (Dual) - Shanell Munguia DO Surgeon Shanell Munguia, DO Hasher Operator none Estimated Blood Loss 30 Findings Consistent with Post-Op Diagnosis Specimens none Description of Procedure see official report I attest to the content of the Intraoperative Record and any orders documented therein. Any exceptions are noted below.
[2021-01-21] MEDS ORDERED: ACETAMINOPHEN 325 MG TAB ONE (15:06)
[2021-01-21] MEDS ORDERED: MoRPHine SULFATE 2 MG/ML CARP ONE (15:52)
--- NOTE | 2021-01-21 16:54 | XRay Report ---
XR chest 1V portable CLINICAL HISTORY: s/p pacer COMPARISON STUDY: Chest radiograph September 18, 2020. FINDINGS: There is no pneumothorax following placement of a dual-lead left subclavian pacer. Position of lead tips is suboptimally assessed given lack of lateral view but project over the expected locat ion of the right atrial appendage and right ventricle. Cardiomegaly is noted. Small left pleural effu willie is noted. There is mild interstitial thickening. Postoperative findings within the spine are par tially imaged. IMPRESSION: 1. No pneumothorax following placement of a dual-lead left subclavian pacemaker. 2. Small left pleural effusion. 3. Findings suggestive of mild interstitial pulmonary edema. ACT 112: Negative or not required by law. Electronically signed by: Jeanmarie Strange M.D. 01/21/2021 4:53 PM
[2021-01-21] MEDS ORDERED: oxyCODONE/ACETAMINOPHEN 5mg/325mg TAB PO PRN (16:56)
[2021-01-21] MEDS ORDERED: ALBUTEROL 0.083% NEBU SOLN 3 ML VIAL INH PRN (16:58)
[2021-01-21] MEDS ORDERED: NITROGLYCERIN SL 0.4 MG/TAB TAB SL PRN (16:58)
[2021-01-21] MEDS ORDERED: traMADol HCL 50 MG TABLET PO PRN (16:58)
[2021-01-21] MEDS ORDERED: MoRPHine SULFATE 2 MG/ML CARP IV PRN (16:59)
[2021-01-21] MEDS: METOPROLOL SUCC 50MG EXT REL TAB PO SCH (19:34)
[2021-01-21] MEDS: PANTOprazole 40 MG TAB PO SCH (20:09)
[2021-01-21] MEDS ORDERED: CALCIUM CARBONATE 1250MG TAB PO SCH (21:00)
[2021-01-21] MEDS ORDERED: TORSEMIDE 10 MG TAB PO SCH (21:00)
[2021-01-21] MEDS ORDERED: ATORVASTATIN 40 MG TAB PO SCH (21:00)
[2021-01-21] MEDS ORDERED: ALFUZOSIN HCL 10 MG TAB PO SCH (21:00)
[2021-01-21] MEDS ORDERED: FINASTERIDE 5 MG TAB PO SCH (21:00)
[2021-01-22] MEDS: PANTOprazole 40 MG TAB PO SCH (08:13)
[2021-01-22] MEDS: METOPROLOL SUCC 50MG EXT REL TAB PO SCH (08:13)
[2021-01-22] MEDS ORDERED: CHOLECALCIFEROL 1,000 UNITS 25 MCG TAB PO SCH (09:00)
[2021-01-22] MEDS ORDERED: CYANOCOBALAMIN 500 MCG TABLET (VITAMIN B-12) PO SCH (09:00)
[2021-01-22] MEDS ORDERED: amLODIPine BESYLATE 5 MG TAB PO SCH (09:00)
[2021-01-22] MEDS ORDERED: predniSONE 5 MG TAB PO SCH (09:00)
[2021-01-22] MEDS ORDERED: ASPIRIN 81 MG ECTAB PO SCH (09:00)
--- NOTE | 2021-01-22 10:05 | Cardiology Progress Note ---
Date of Service January 22, 2021 Assessment & Plan (1) Pacemaker pocket hematoma: Pressure dressing removed. No significant hematoma. No erythema or drainage. Patient's arm placed in sling. Post pacemaker activity restrictions discussed. Discharge to home today. Outpatient pacemaker interrogation/wound check in 1 week. (2) Frequent PVCs: Improved. Continue Toprol-XL 50 mg daily. (Previous outpatient dose 25 mg daily) (3) Aortic stenosis, moderate: Monitor. Follow-up outpatient echocardiogram scheduled. (4) CAD (coronary artery disease): Continue current medications. Cardiothoracic surgical evaluation scheduled. Admission and Anticipated Discharge Date Admission Date: January 21, 2021 Subjective Patient seen and examined the bedside. Feeling well from a cardiovascular perspective. Telemetry reveals AV sequential pacing. Rare PVCs noted. Metoprolol titrated to 50 mg daily post pacemaker insertion. He was observed overnight due to mild pocket hematoma. Pressure dressing was placed. Offers no concerns/complaints this morning. Normal device function per interrogation. Review of Systems Review of Systems: All systems reviewed & are unremarkable except as noted in Subjective Physical Exam Constitutional: well developed and well nourished; no acute distress Respiratory: normal respiratory effort; no respiratory distress, no labored breathing and no retractions Auscultation: no diminished lung sounds, no crackles, no rales, no rhonchi and no wheezes Cardiovascular: Rate/Rhythm: regular rate and regular rhythm Heart Sounds: normal S1, normal S2 and + murmur (3/6 late peaking systolic ejection murmur) Vessels: no JVD Extremities: + edema (1+ bilateral pedal and ankle edema) Gastrointestinal (Abdomen): Inspection/Auscultation: abdomen normal to inspection and normal bowel sounds; abdomen not distended Percussion/Palpation: abdomen soft; abdomen nontender, no guarding and abdomen not rigid Neurologic: moves all extremities; no focal motor deficits Motor/Sensory: no tremor Psychiatric: A+Ox3, euthymic affect Results & Data ([facility]) Vital Signs (Past 12 Hours) Vital Signs Temp Pulse Resp BP Pulse Ox 01/22/21 07:21 36.7 C 61 18 135/77 95 01/22/21 02:51 36.6 C 64 18 144/82 H 96 01/21/21 22:38 36.5 C 60 16 147/55 H 92
--- NOTE | 2021-01-22 15:04 | Electrocardiogram Report ---
Test Reason : Blood Pressure : / mmHG Vent. Rate : 078 BPM Atrial Rate : 073 BPM P-R Int : 000 ms QRS Dur : 114 ms QT Int : 432 ms P-R-T Axes : 000 247 103 degrees QTc Int : 492 ms AV sequential pacing with frequent and consecutive PVCs Abnormal ECG When compared with ECG of 18-SEP-2020 02:29, Significant changes have occurred Confirmed by Blair Tyson ([id number]) on 01/22/2021 3:04:11 PM Referred By: Shanell Munguia Confirmed By:Yadiel Tyson
--- NOTE | 2021-02-03 13:16 | Discharge Summary ---
Date of Service January 22, 2021 Admission HPI Per Admitting Provider pt admitted for elective ppm implant Admission Exam Per Admitting Provider aaox3, NAD NC/AT, EOMI Supple No JVD bradycardia S1/S2, No murmur CTA b/l no w/r/r soft nt/nd no LE edema b/l skin intact no focal deficits Principal Diagnosis TBS s/p ppm Discharge Exam ENAZ Mallampati Class: II Respiratory normal respiratory effort, lungs clear to auscultation Cardiovascular Rate/Rhythm: + bradycardic Discharge Data Allergies Allergy/AdvReac Type Severity Reaction Status Date / Time codeine AdvReac Mild N/V Verified 11/28/20 13:01 Procedures Performed Operation Date: 01/21/21 11:00 Actual Procedures p Pacer with A/V Leads (Dual) - Shanell Munguia DO s Bundle of his Recording - Shanell Munguia DO s Venogram, Unilateral - Shanell Munguia DO Ordered Studies 01/21/21 06:45 EP Lab Images for PACS ONCE Hospital Course (1) Pacemaker pocket hematoma: Pressure dressing removed. No significant hematoma. No erythema or drainage. Patient's arm placed in sling. Post pacemaker activity restrictions discussed. Discharge to home today. Outpatient pacemaker interrogation/wound check in 1 week. (2) Frequent PVCs: Improved. Continue Toprol-XL 50 mg daily. (Previous outpatient dose 25 mg daily) (3) Aortic stenosis, moderate: Monitor. Follow-up outpatient echocardiogram scheduled. (4) CAD (coronary artery disease): Continue current medications. Cardiothoracic surgical evaluation scheduled. Total Time Total Time Spent Total Time Spent (In Minutes): 30 Total Time Includes: Examination of the Patient, Discharge Planning, Medication Reconciliation and Other Discharge Plan Discharge Items Patient Disposition: Home - Self-Care Reason For Visit: DUAL CHAMBER PACEMAKER Discharge Diagnosis: sss s/p ppm Condition on Discharge: Good Activity: As commented below Activity Comment: do not lift the left elbow over the left shoulder for 1 month Lifting: No more than 10 pounds Lifting Comment: do not lift more than 10 pounds with the left arm for 2 weeks Bathing: Keep incision dry Bathing Comment: keep dresssing on & dry until wound check next week; no shower Non-emergency contact: [employer] Call non-emergency contact if: you have any medication questions, you have a fever, your wound has increased redness, your wound has increased drainage and your wound pain has increased Follow-up/Referrals: Florentin Corrales PA-C [Primary Care Provider] - 01/26/21 11:20 am Diet: Heart Healthy Addtl Attending Provider Instructions: device and wound check next week at [facility] cardiology send a remote check tomorrow from your device remote box increase your toprol to 50mg daily (so 2 tabs a day) Keep the pressure dressing on (the brown one) ideally until Tuesday if possible; if the underlying white dressing comes off then put a new one on and keep this on until your wound check next week Ok to take Tylenol for pain or Percocet for pain (take with food) Ok to apply ice pack over the area just keep the dressing dry; change it if it gets wet If any swelling at the site-call [facility] Cardiology Pending Studies at Discharge: No Stand-Alone Forms: Anesthesia/Sedation, Adult, My [facility], Smoking Cessation Medications and DC Order Prescriptions: Continued atorvastatin 40 mg tablet 40 mg PO QPM RF: 0 prednisone 5 mg tablet 5 mg PO QAM RF: 0 torsemide 10 mg tablet 20 mg PO QPM RF: 0 amlodipine 5 mg tablet 5 mg PO QAM RF: 0 omeprazole 20 mg capsule,delayed release(DR/EC) 20 mg PO BID RF: 0 finasteride 5 mg tablet 5 mg PO QPM RF: 0 alfuzosin 10 mg tablet extended release 24 hr 10 mg PO QPM RF: 0 albuterol sulfate 2.5 mg /3 mL (0.083 %) solution for nebulization 2.5 mg inhalation Q6H PRN (Reason: Wheezing) RF: 0 tramadol 50 mg tablet 50 mg PO Q6H PRN (Reason: pain, moderate) Qty: 30 RF: 0 cholecalciferol (vitamin D3) 25 mcg (1,000 unit) Tablet 1,000 unit PO QAM RF: 0 nitroglycerin 0.4 mg Tablet, Sublingual 0.4 mg sublingual UD PRN (Reason: Chest Pain) RF: 0 albuterol sulfate 90 mcg/actuation Hfa Aerosol Inhaler 1 - 2 inh INHALATION QID PRN (Reason: SHORT OF BREATH) RF: 0 calcium 500 mg Tablet 500 mg PO PM RF: 0 aspirin 81 mg Tablet,Chewable 81 mg PO DAILY RF: 0 cyanocobalamin (vitamin B-12) 1,000 mcg Tablet, Sublingual 1,000 mcg sublingual DAILY RF: 0 Changed metoprolol succinate 25 mg tablet extended release 24 hr 50 mg PO QPM Qty: 0 RF: 0 Discharge Orders: Discharge Order (Routine); Ordered 01/21/21 Ordered By: Shanell Munguia Admission Data Admit Date/Time: 01/21/21 16:46 Attending Provider: Shanell Mungiua Admit Provider: Shanell Munguia Primary Care Provider: Florentin Corrales Other Interventions: Discharge Summary Assessment (RN) Last Done: 01/22/21 10:42
--- NOTE | 2021-02-06 01:55 | Operative Report (OR) ---
DATE OF PROCEDURE: 01/21/2021 PREOPERATIVE DIAGNOSIS: Sick sinus syndrome. POSTOPERATIVE DIAGNOSIS: Sick sinus syndrome. PROCEDURE: Dual chamber rate responsive permanent pacemaker under fluoroscopic guidance along with intracardiac electrogram His bundle recording and peripheral venogram. SURGEON: Shanell Munguia DO SIGN WIRER: None. ANESTHESIA: Monitored conscious sedation administered under my supervision by Abhinav Lambert. Start time 12:39, end time 2:31. A total of 5 mg of Versed and 100 mcg of fentanyl. INTRAVENOUS FLUIDS: 84 mL. ANTIBIOTICS: 2 grams of Ancef. CONTRAST: 10 mL BLOOD LOSS: 20 mL URINE OUTPUT: Not applicable. SPECIMENS: None. FINDINGS: See below. DRAINS: None. INDICATIONS: This is an 85-year-old gentleman with a past medical history for severe aortic stenosis, coronary artery disease. Based on his catheterization in December of 2020, his distal left main is 50%, ostial circumflex is 80%, OM1 50%, OM2 80%, mid LAD 40%, the RCA has luminal irregularities, hypertension, hyperlipidemia, gastroesophageal reflux disease, chronic kidney disease stage III, thrombocytopenia, vitamin B12 deficiency, osteoarthritis, frequent PVCs, and sick sinus syndrome. Due to his frequent PVCs and sick sinus syndrome, he was recommended a pacemaker. CONSENT: Consent was obtained prior to the patient going into the electrophysiology lab. The patient was informed of the risks, benefits, and alternatives to the procedure. Risks include, but not limited to, sudden cardiac , cardiac arrhythmias, cerebrovascular accident, myocardial infarction, injury to the blood vessels, chamber of the heart, lung, bleeding, and infection. The patient understood these risks and agreed to proceed with the procedure as planned. Informed consent was obtained. DESCRIPTION OF THE PROCEDURE: The patient was brought into the electrophysiology lab in a fasting state. He was connected to continuous cardiac monitoring. A time-out was performed to ensure the patient's identity and procedure correctly. The patient was then prepped and draped over the left infraclavicular space in a normal surgical standard fashion. Monitored conscious sedation was given throughout the procedure for the patient's comfort level. [place] precautions were maintained throughout the procedure. A 10 mL of 1% lidocaine and bupivacaine mixture was given in the left deltopectoral groove. An incision was made in the left deltopectoral groove. Blunt dissection was performed down to identify the cephalic vein; however, none could be identified. So a peripheral venogram was performed to identify the axillary vein. Venous access was obtained through a needle stick without any problem. A 7-Guamanian sheath was advanced through the guidewire without any resistance. Dilator was removed and a second wire was inserted through the sheath to allow for retained venous access. Sheath was flushed and reinserted over one of the dilators and then reinserted over one of the guidewires. The guidewire and dilator were removed. Then the His C315 sheath was advanced into the right ventricle over a Glidewire. The Glidewire and dilator were removed. The lead was then advanced through the sheath and intracardiac electrogram His bundle recordings was performed to identify the His bundle region. Then this region was marked on our fluoroscopy screen when the camera was in PARIKH 30. Then we came down about 2 cm from that in a line that would extend out to the apex to kind of have an idea of where we wanted to position our left bundle lead. The sheath was then positioned down in that area and we would come on pacing to see how our pacing morphology looked, specifically in V1. Once I found a nice spot that I felt looked good, I put the camera in KATHERINE 30 and then started during clockwise turns to start screwing the lead into the septum. I did have to reposition the lead, but ultimately I found a nice spot and as we screwed into the septum pausing every once in a while after some clockwise turns to see how my QRS morphology changed in V1 to start having an R prime as well as my pacing stent QRS peak in V6 started to shorten and my impedance dropped, I then gave some contrast through the sheath to see how well I was in the septum. Ultimately I had good pacing signal and I was well into the septum. The His C315 sheath was then put under fluoroscopic guidance, but the 7-Guamanian sheath remained while I positioned the atrial lead. A second 7-Guamanian sheath was advanced over the retained guidewire without any resistance, guidewire and dilator removed. The atrial lead was ultimately advanced into the right atrium and positioned into the right atrial appendage. I did have to reposition it a few times. There was adequate pacing and sensing thresholds and no diaphragmatic stimulation with high output pacing. The 7- [place]ian sheath was peeled away and lead was fixated to pectoralis muscle using 0 silk suture. I then flipped the 7-Guamanian sheath with a left bundle lead and then that lead was fixated to the pectoralis muscle using 0 silk suture. A pacemaker pocket was created using blunt dissection of the pectoralis muscle and then the pectoralis fascia. This pocket was flushed with copious amounts of bacitracin, saline wash and inspected for hemostasis. The pulse generator was then attached to the leads making sure the pins were in appropriate position, passed set screws, and set screws were all tightened. The pulse generator was then placed in the antibiotic pouch followed then by being placed in the pocket, making sure the leads were lying flat beneath the device. The incision was closed in a 3- layer fashion using 2-0 Vicryl interrupted suture followed by 3-0 Vicryl interrupted suture followed by 4-0 Monocryl running stitch. Dermabond was applied followed by Telfa and micropore dressing. EQUIPMENT: 1. Pulse generator is a [employer] [place] XT DR TANJA Christy [id number], serial number [id number]. 2. Right atrial lead, Medtronic 5076-52 cm, serial number [id number]. 3. Left bundle lead, Medtronic 3830-69 cm, serial number [id number]. 4. Tyrx pouch, reference [id number], lot number [id number]. INTRAOPERATIVE FINDINGS: 1. Intracardiac electrogram His bundle recordings. 2. AH 88 milliseconds, HV 73 milliseconds. 3. Right atrial lead P-wave 0.8 millivolts, impedance 471 ohms, threshold 1.5 volts at 0.5 milliseconds. 4. Left bundle lead R-wave 6.1 millivolts, impedance 858 ohms, threshold 0.5 volts at 0.5 milliseconds. FINAL MEASUREMENTS THROUGH THE DEVICE: 1. Right atrial lead P-wave 0.7 millivolts, impedance 380 ohms, threshold 0.75 volts at 0.4 milliseconds. 2. Left bundle lead R-wave 10.6 millivolts, impedance 475 ohms, threshold 0.5 volts at 0.4 milliseconds. FINAL PARAMETERS: DDDR 60/130. Right atrial amplitude 3.5 volts, pulse width 0.4 milliseconds, sensitivity 0.15 millivolts, right ventricular amplitude 3.5 volts, pulse width 0.4 milliseconds, sensitivity 0.9 millivolts. IMPRESSION: Successful dual chamber rate responsive permanent pacemaker under fluoroscopic guidance along with a peripheral venogram and intracardiac electrogram His bundle recording secondary to sick sinus syndrome. PLAN: Monitor the patient post-procedure. We ended up keeping him overnight as he was going home alone and was still feeling pretty groggy. Chest x-ray and EKG. We checked the device in the morning and we will start him on a higher dose of metoprolol. He is not to lift the left elbow or left shoulder for 1 month. He cannot lift more than 10 pounds with the left arm for 2 weeks. He is to keep the dressing on and dry until his wound check next week. Job ID: [id number] [facility]
== END 2021-01-22 12:29 | disposition home or self-care (01) ==
LOC: 2S 09:51 → EP 09:51